=== PATIENT | female | born 1935 | race Caucasian/White ===

== ENCOUNTER 2018-02-08 12:58 | Emergency (ER) | payer MEDICARE, OTHER ==
[~2018-02-08] VITALS: Ht 160 cm; Wt 61.5 kg
[~2018-02-08 12:58] MED LIST: ALBU6.7H INH; ALBU8.5H8 IH; CETI10CA PO; CITA10TA9 PO; FLUT16SP26 BOTHNARES; STORE MEDs IN PHARMACY MC; TRAZ-143 PO
[2018-02-08 13:23] LABS: CLARITY,URINE Clear (Clear); COLOR,URINE Yellow (Yellow); GLUCOSE, URINE Negative (Neg); KETONES,URINE Negative (Neg); LEUKOCYTE ESTERASE ,URINE Small (Neg); NITRITES, URINE Negative (Neg); OCCULT BLOOD,URINE Negative (Neg); PROTEIN,URINE Negative (Neg)
[2018-02-08 13:27] LABS: UA COLLECTION TYPE CLN CATCH MIDSTREAM
[2018-02-08 13:28] LABS: BACTERIA,URINE 1+ /HPF (Neg); CAL OXALATE CRYSTALS 2+ /HPF (NEGATIVE); RBC,URINE NONE SEEN /HPF (0-2); RENAL CELLS, URINE FEW /HPF; SQUAMOUS EPITHELIAL CELL,UR MODERATE /LPF (FEW); WBC,URINE 0-4 /HPF (0-4)
[2018-02-08 13:29] LABS: COARSE GRANULAR CAST 0-3 /LPF (NEGATIVE)
[2018-02-08 13:38] LABS: BASOPHILS % (AUTO) 0.4 % (0-1); EOSINOPHILS # (AUTO) 0.6 X10'3 (0-0.9); EOSINOPHILS % (AUTO) 7.1 % (0-6); HEMATOCRIT 43.5 % (35.0-45.0); HEMOGLOBIN 14.5 g/dl (12.0-16.0); LYMPHOCYTES # (AUTO) 2.2 X10'3 (1.1-4.8); MEAN CORPUSCULAR HEMOGLOBIN 29.3 PG (27.0-31.0); MEAN CORPUSCULAR HGB CONC 33.2 % (33.0-36.5); MEAN CORPUSCULAR VOLUME 88.3 FL (78-98); MEAN PLATELET VOLUME 8.6 FL (7.4-10.4); MONOCYTES # (AUTO) 0.8 X10'3 (0-0.9); MONOCYTES % (AUTO) 10.4 % (2-12); NEUTROPHILS # (AUTO) 4.5 X10'3 (1.8-7.7); NEUTROPHILS % (AUTO) 55.1 % (42-75); PLATELET COUNT 287 X10'3 (140-440); RED BLOOD COUNT 4.93 X10'6 (4.20-5.60); RED CELL DISTRIBUTION WIDTH 13.3 % (11.5-14.5); WHITE BLOOD COUNT 8.1 X10'3 (4.5-11.0)
[2018-02-08 13:46] LABS: PROTHROMBIN TIME 10.3 SECONDS (9.0-12.0)
[2018-02-08 13:54] LABS: ALANINE AMINOTRANSFERASE 19 U/L (12-78); ALBUMIN 3.4 G/DL (3.4-5.0); ALBUMIN/GLOBULIN RATIO 0.9 (1.1-1.5); ALKALINE PHOSPHATASE 86 IU/L (46-116); ANION GAP 10 (8-16); ASPARTATE AMINO TRANSFERASE 14 U/L (10-37); BILIRUBIN,TOTAL 0.3 MG/DL (0.1-1.0); BLOOD UREA NITROGEN 12 MG/DL (7-18); BUN/CREATININE RATIO 12.8 (6.6-38.0); CALCIUM 9.1 MG/DL (8.5-10.1); CHLORIDE 109 MMOL/L (99-107); CREATININE 0.94 MG/DL (0.40-0.90); GLUCOSE 97 MG/DL (70-104); POTASSIUM 4.1 MMOL/L (3.5-5.1); SODIUM 144 MMOL/L (135-145); TOTAL CARBON DIOXIDE 24.7 MMOL/L (24-32); TOTAL PROTEIN 7.2 G/DL (6.4-8.2); eGFR 57 ML/MIN
[2018-02-08] MEDS ORDERED: BISA10SU60 RC (14:46)
[2018-02-08 14:49] LABS: LIPASE 326 U/L (73-393); MAGNESIUM 1.9 MG/DL (1.5-2.4)
[2018-02-08] MEDS ORDERED: bisacodyl 10mg suppository rectal RC ONE (14:50)
[2018-02-08 14:56] VITALS: BP 137/81
[2018-02-08 15:06] LABS: ETHANOL < 0.010 GM/DL (0.0-0.010)
== END 2018-02-08 15:19 | disposition home or self-care (01) ==
LOC: ER 12:59
DX: K59.00 Constipation, unspecified (principal); R10.9 Unspecified abdominal pain; M79.89 Other specified soft tissue disorders; E86.0 Dehydration; I25.2 Old myocardial infarction; I25.10 Atherosclerotic heart disease of native coronary artery without angina pectoris; Z90.49 Acquired absence of other specified parts of digestive tract; Z86.711 Personal history of pulmonary embolism; Z88.0 Allergy status to penicillin; Z88.5 Allergy status to narcotic agent; Z79.899 Other long term (current) drug therapy
CPT/HCPCS: 36415; 74018; 80053; 80320; 81001; 83690; 83735; 85025; 85610; 87088; 99285

== ENCOUNTER 2018-02-13 15:12 | Emergency (ER) | payer MEDICARE, OTHER ==
[~2018-02-13] VITALS: Ht 160 cm; Wt 63.6 kg
[~2018-02-13 15:12] MED LIST changes: +BISA10SU60 RC
[2018-02-13 16:02] LABS: BASOPHILS # (AUTO) 0.1 X10'3 (0-0.2); BASOPHILS % (AUTO) 0.7 % (0-1); EOSINOPHILS # (AUTO) 0.4 X10'3 (0-0.9); HEMATOCRIT 43.6 % (35.0-45.0); HEMOGLOBIN 14.7 g/dl (12.0-16.0); LYMPHOCYTES # (AUTO) 2.9 X10'3 (1.1-4.8); LYMPHOCYTES % (AUTO) 39.4 % (21-51); MEAN CORPUSCULAR HEMOGLOBIN 29.5 PG (27.0-31.0); MEAN CORPUSCULAR HGB CONC 33.6 % (33.0-36.5); MEAN CORPUSCULAR VOLUME 87.8 FL (78-98); MEAN PLATELET VOLUME 8.4 FL (7.4-10.4); MONOCYTES # (AUTO) 0.7 X10'3 (0-0.9); MONOCYTES % (AUTO) 8.8 % (2-12); NEUTROPHILS # (AUTO) 3.4 X10'3 (1.8-7.7); NEUTROPHILS % (AUTO) 46.1 % (42-75); PLATELET COUNT 287 X10'3 (140-440); RED BLOOD COUNT 4.97 X10'6 (4.20-5.60); RED CELL DISTRIBUTION WIDTH 13.1 % (11.5-14.5); WHITE BLOOD COUNT 7.5 X10'3 (4.5-11.0)
[2018-02-13 16:12] LABS: PARTIAL THROMBOPLASTIN TIME 27 SECONDS (22-32); PROTHROMBIN TIME 10.7 SECONDS (9.0-12.0)
[2018-02-13 16:16] LABS: ALANINE AMINOTRANSFERASE 18 U/L (12-78); ALBUMIN 3.4 G/DL (3.4-5.0); ALBUMIN/GLOBULIN RATIO 0.9 (1.1-1.5); ALKALINE PHOSPHATASE 92 IU/L (46-116); ANION GAP 12 (8-16); ASPARTATE AMINO TRANSFERASE 15 U/L (10-37); BILIRUBIN,TOTAL 0.4 MG/DL (0.1-1.0); BLOOD UREA NITROGEN 11 MG/DL (7-18); BUN/CREATININE RATIO 11.8 (6.6-38.0); CALCIUM 9.6 MG/DL (8.5-10.1); CHLORIDE 106 MMOL/L (99-107); CREATININE 0.93 MG/DL (0.40-0.90); GLUCOSE 89 MG/DL (70-104); POTASSIUM 3.7 MMOL/L (3.5-5.1); SODIUM 142 MMOL/L (135-145); TOTAL CARBON DIOXIDE 24.5 MMOL/L (24-32); TOTAL PROTEIN 7.3 G/DL (6.4-8.2); eGFR 58 ML/MIN
[2018-02-13] MEDS ORDERED: ASPI-529 (17:25)
[2018-02-13] MEDS ORDERED: ALPR-624 PO (17:25)
[2018-02-13 20:24] VITALS: BP 112/89
== END 2018-02-13 20:26 | disposition home or self-care (01) ==
LOC: ER 15:13
DX: M25.512 Pain in left shoulder (principal); R51 Headache; R53.1 Weakness; I25.10 Atherosclerotic heart disease of native coronary artery without angina pectoris; I25.2 Old myocardial infarction; M79.89 Other specified soft tissue disorders; Z90.49 Acquired absence of other specified parts of digestive tract; Z88.5 Allergy status to narcotic agent; Z88.0 Allergy status to penicillin; Z88.8 Allergy status to other drugs, medicaments and biological substances; Z79.82 Long term (current) use of aspirin; Z79.899 Other long term (current) drug therapy
CPT/HCPCS: 36415; 70450; 71045; 80053; 84484; 85025; 85610; 85730; 93005; 99285

== ENCOUNTER 2018-03-10 11:19 | Emergency (ER) | payer MEDICARE, OTHER ==
[~2018-03-10] VITALS: Ht 160 cm; Wt 63.6 kg
[~2018-03-10 11:19] MED LIST changes: -ALBU6.7H INH; -ALBU8.5H8 IH; +ALPR-624 PO; +ASPI-529; -BISA10SU60 RC; -CETI10CA PO; -CITA10TA9 PO; -FLUT16SP26 BOTHNARES; -STORE MEDs IN PHARMACY MC; -TRAZ-143 PO
[2018-03-10 11:42] LABS: BASOPHILS % (AUTO) 0.6 % (0-1); EOSINOPHILS # (AUTO) 0.5 X10'3 (0-0.9); EOSINOPHILS % (AUTO) 8.3 % (0-6); HEMATOCRIT 42.9 % (35.0-45.0); HEMOGLOBIN 14.5 g/dl (12.0-16.0); LYMPHOCYTES # (AUTO) 2.6 X10'3 (1.1-4.8); LYMPHOCYTES % (AUTO) 42.6 % (21-51); MEAN CORPUSCULAR HEMOGLOBIN 29.4 PG (27.0-31.0); MEAN CORPUSCULAR HGB CONC 33.7 % (33.0-36.5); MEAN CORPUSCULAR VOLUME 87.2 FL (78-98); MEAN PLATELET VOLUME 7.9 FL (7.4-10.4); MONOCYTES # (AUTO) 0.5 X10'3 (0-0.9); MONOCYTES % (AUTO) 8.6 % (2-12); NEUTROPHILS # (AUTO) 2.4 X10'3 (1.8-7.7); NEUTROPHILS % (AUTO) 39.9 % (42-75); PLATELET COUNT 239 X10'3 (140-440); RED BLOOD COUNT 4.92 X10'6 (4.20-5.60); RED CELL DISTRIBUTION WIDTH 12.6 % (11.5-14.5); WHITE BLOOD COUNT 6.1 X10'3 (4.5-11.0)
[2018-03-10 11:51] LABS: PARTIAL THROMBOPLASTIN TIME 26 SECONDS (22-32); PROTHROMBIN TIME 10.7 SECONDS (9.0-12.0)
[2018-03-10 11:56] LABS: ALANINE AMINOTRANSFERASE 19 U/L (12-78); ALBUMIN 3.2 G/DL (3.4-5.0); ALBUMIN/GLOBULIN RATIO 0.9 (1.1-1.5); ALKALINE PHOSPHATASE 91 IU/L (46-116); ANION GAP 8 (8-16); ASPARTATE AMINO TRANSFERASE 26 U/L (10-37); BILIRUBIN,TOTAL 0.5 MG/DL (0.1-1.0); BLOOD UREA NITROGEN 12 MG/DL (7-18); BUN/CREATININE RATIO 11.9 (6.6-38.0); CALCIUM 9.3 MG/DL (8.5-10.1); CHLORIDE 109 MMOL/L (99-107); CREATININE 1.01 MG/DL (0.40-0.90); GLUCOSE 129 MG/DL (70-104); SODIUM 143 MMOL/L (135-145); TOTAL CARBON DIOXIDE 25.9 MMOL/L (24-32); TOTAL PROTEIN 6.8 G/DL (6.4-8.2); eGFR 53 ML/MIN
[2018-03-10] MEDS ORDERED: sucralfate 1gm/10ml UD suspension PO STA (12:02)
[2018-03-10] MEDS ORDERED: morphine 2 MG/ML inj. syringe IV ONE (12:05)
[2018-03-10] MEDS ORDERED: morphine 4 MG/ML inj SYRINge IV ONE ×2 (12:15→12:40)
[2018-03-10 13:38] VITALS: BP 109/71
[2018-03-11] MEDS ORDERED: PANT-47 PO (20:34)
[2018-03-11] MEDS ORDERED: SUCR1TAB34 PO (20:34)
== END 2018-03-10 13:55 | disposition home or self-care (01) ==
LOC: ER 11:20
DX: R07.9 Chest pain, unspecified (principal); I25.10 Atherosclerotic heart disease of native coronary artery without angina pectoris; I25.2 Old myocardial infarction; Z90.49 Acquired absence of other specified parts of digestive tract; Z88.0 Allergy status to penicillin; Z88.5 Allergy status to narcotic agent; Z79.899 Other long term (current) drug therapy
CPT/HCPCS: 36415; 71045; 80053; 84484; 85025; 85610; 85730; 93005; 96374; 99285; J2270

== ENCOUNTER 2018-03-11 18:48 | Emergency (ER) | payer MEDICARE, OTHER ==
[~2018-03-11] VITALS: Ht 160 cm; Wt 61.8 kg
[2018-03-11 19:28] LABS: BASOPHILS % (AUTO) 0.8 % (0-1); EOSINOPHILS # (AUTO) 0.6 X10'3 (0-0.9); HEMATOCRIT 40.4 % (35.0-45.0); HEMOGLOBIN 13.9 g/dl (12.0-16.0); LYMPHOCYTES # (AUTO) 2.3 X10'3 (1.1-4.8); LYMPHOCYTES % (AUTO) 42.8 % (21-51); MEAN CORPUSCULAR HEMOGLOBIN 29.7 PG (27.0-31.0); MEAN CORPUSCULAR HGB CONC 34.5 % (33.0-36.5); MEAN CORPUSCULAR VOLUME 86.2 FL (78-98); MONOCYTES # (AUTO) 0.7 X10'3 (0-0.9); NEUTROPHILS # (AUTO) 1.8 X10'3 (1.8-7.7); NEUTROPHILS % (AUTO) 33.4 % (42-75); PLATELET COUNT 226 X10'3 (140-440); RED BLOOD COUNT 4.69 X10'6 (4.20-5.60); RED CELL DISTRIBUTION WIDTH 13.1 % (11.5-14.5); WHITE BLOOD COUNT 5.4 X10'3 (4.5-11.0)
[2018-03-11 19:38] LABS: PROTHROMBIN TIME 10.7 SECONDS (9.0-12.0)
[2018-03-11 19:44] LABS: ALANINE AMINOTRANSFERASE 35 U/L (12-78); ALBUMIN/GLOBULIN RATIO 0.8 (1.1-1.5); ALKALINE PHOSPHATASE 95 IU/L (46-116); ANION GAP 8 (8-16); ASPARTATE AMINO TRANSFERASE 43 U/L (10-37); BILIRUBIN,TOTAL 0.5 MG/DL (0.1-1.0); BLOOD UREA NITROGEN 11 MG/DL (7-18); BUN/CREATININE RATIO 11.3 (6.6-38.0); CALCIUM 9.3 MG/DL (8.5-10.1); CHLORIDE 108 MMOL/L (99-107); CREATININE 0.97 MG/DL (0.40-0.90); GLUCOSE 103 MG/DL (70-104); POTASSIUM 3.6 MMOL/L (3.5-5.1); SODIUM 143 MMOL/L (135-145); TOTAL CARBON DIOXIDE 26.8 MMOL/L (24-32); TOTAL PROTEIN 6.6 G/DL (6.4-8.2); eGFR 55 ML/MIN
[2018-03-11] MEDS ORDERED: SUCR1TAB34 PO (20:34)
[2018-03-11] MEDS ORDERED: PANT-47 PO (20:34)
[2018-03-11 21:04] VITALS: BP 130/75
== END 2018-03-11 21:06 | disposition home or self-care (01) ==
LOC: ER 18:48
DX: R10.13 Epigastric pain (principal); K44.9 Diaphragmatic hernia without obstruction or gangrene; I25.10 Atherosclerotic heart disease of native coronary artery without angina pectoris; I25.2 Old myocardial infarction; Z90.49 Acquired absence of other specified parts of digestive tract; Z88.0 Allergy status to penicillin; Z88.5 Allergy status to narcotic agent; Z88.8 Allergy status to other drugs, medicaments and biological substances; Z79.899 Other long term (current) drug therapy
CPT/HCPCS: 36415; 80053; 84484; 85025; 85610; 93005; 99285; A6222; A6449; L0172

== ENCOUNTER 2018-03-23 21:10 | Emergency (ER) | payer MEDICARE, OTHER ==
[~2018-03-23] VITALS: Ht 160 cm; Wt 50.0 kg
[~2018-03-23 21:10] MED LIST changes: +PANT-47 PO; +SUCR1TAB34 PO
[2018-03-23] MEDS ORDERED: mag hydrox/Alum hydrox/simeth 30ml oral suspension PO ONE (22:25)
[2018-03-23] MEDS ORDERED: famotidine 20mg tablet PO ONE (22:25)
[2018-03-23 23:18] VITALS: BP 128/58
== END 2018-03-23 23:19 | disposition home or self-care (01) ==
LOC: ER 21:11
DX: K21.9 Gastro-esophageal reflux disease without esophagitis (principal); I25.10 Atherosclerotic heart disease of native coronary artery without angina pectoris; I25.2 Old myocardial infarction; Z86.711 Personal history of pulmonary embolism; Z90.49 Acquired absence of other specified parts of digestive tract; Z88.0 Allergy status to penicillin; Z88.8 Allergy status to other drugs, medicaments and biological substances; Z79.899 Other long term (current) drug therapy
CPT/HCPCS: 93005; 99283

== ENCOUNTER 2018-04-28 11:51 | Inpatient (IN) | payer MEDICARE, OTHER ==
[~2018-04-28] VITALS: Ht 157.5 cm; Wt 64.1 kg
[~2018-04-28 11:51] MED LIST changes: +adenosine 3mg/ml 2ml vial IV ONE
[2018-04-28] MEDS ORDERED: adenosine 3mg/ml 2ml vial IV ONE ×2 (12:20)
[2018-04-28] MEDS ORDERED: normal saline 1000ML IV soln IVB ONE (12:20)
[2018-04-28 13:11] LABS: BASOPHILS % (AUTO) 0.5 % (0-1); EOSINOPHILS # (AUTO) 0.2 X10'3 (0-0.9); EOSINOPHILS % (AUTO) 4.3 % (0-6); HEMATOCRIT 40.9 % (35.0-45.0); HEMOGLOBIN 13.8 g/dl (12.0-16.0); LYMPHOCYTES # (AUTO) 1.9 X10'3 (1.1-4.8); LYMPHOCYTES % (AUTO) 36.5 % (21-51); MEAN CORPUSCULAR HEMOGLOBIN 29.5 PG (27.0-31.0); MEAN CORPUSCULAR HGB CONC 33.8 % (33.0-36.5); MEAN CORPUSCULAR VOLUME 87.2 FL (78-98); MONOCYTES # (AUTO) 0.5 X10'3 (0-0.9); MONOCYTES % (AUTO) 8.7 % (2-12); NEUTROPHILS # (AUTO) 2.6 X10'3 (1.8-7.7); PLATELET COUNT 197 X10'3 (140-440); RED BLOOD COUNT 4.69 X10'6 (4.20-5.60); RED CELL DISTRIBUTION WIDTH 13.1 % (11.5-14.5); WHITE BLOOD COUNT 5.3 X10'3 (4.5-11.0)
[2018-04-28 13:32] LABS: ALANINE AMINOTRANSFERASE 14 U/L (12-78); ALBUMIN/GLOBULIN RATIO 0.9 (1.1-1.5); ALKALINE PHOSPHATASE 81 IU/L (46-116); ANION GAP 12 (8-16); ASPARTATE AMINO TRANSFERASE 14 U/L (10-37); BILIRUBIN,TOTAL 0.3 MG/DL (0.1-1.0); CALCIUM 8.5 MG/DL (8.5-10.1); CHLORIDE 111 MMOL/L (99-107); CREATININE 0.85 MG/DL (0.40-0.90); GLUCOSE 97 MG/DL (70-104); POTASSIUM 3.5 MMOL/L (3.5-5.1); SODIUM 145 MMOL/L (135-145); TOTAL PROTEIN 6.3 G/DL (6.4-8.2); eGFR 64 ML/MIN
[2018-04-28 13:58] LABS: BLOOD UREA NITROGEN 13 MG/DL (7-18); BUN/CREATININE RATIO 15.3 (6.6-38.0)
[2018-04-28] MEDS ORDERED: mag hydrox/Alum hydrox/simeth 30ml oral suspension PO PRN (16:30)
[2018-04-28] MEDS ORDERED: magnesium hydroxide 30ml (MOM) UD suspension PO PRN (16:30)
[2018-04-28] MEDS ORDERED: ondansetron/PF 4mg/2ml inj IV PRN (16:30)
[2018-04-28] MEDS ORDERED: acetaminophen 325mg tablet PO PRN (16:30)
[2018-04-28 16:48] LABS: D-DIMER 0.75 MG/L FEU (0-0.50)
[2018-04-28 17:00] LABS: LIPASE 218 U/L (73-393)
[2018-04-28] MEDS: potassium Cl 20mEq in NS 1,000 ML IV SCH (17:07)
[2018-04-28 19:00] VITALS: BP 141/86
[2018-04-28] MEDS: ALPRAZolam 0.5mg tablet PO SCH (19:45)
[2018-04-28] MEDS: enoxaparin 100mg/ml syringe SQ SCH (19:46)
[2018-04-28] MEDS: metoprolol tartrate 12.5mg (1/2 tablet) PO SCH (20:59)
[2018-04-28 23:00] VITALS: BP 117/68
[2018-04-29 03:00] VITALS: BP 89/65
[2018-04-29 06:00] VITALS: BP 117/69
[2018-04-29] MEDS: ALPRAZolam 0.5mg tablet PO SCH (07:15)
[2018-04-29] MEDS: metoprolol tartrate 12.5mg (1/2 tablet) PO SCH (07:17)
[2018-04-29] MEDS: enoxaparin 100mg/ml syringe SQ SCH (07:19)
[2018-04-29] MEDS ORDERED: pantoprazole 40mg Tablet.DR PO SCH (07:30)
[2018-04-29] MEDS ORDERED: lisinopril 5mg tablet PO SCH (08:00)
[2018-04-29] MEDS ORDERED: aspirin 81mg tab.chew PO SCH (08:00)
[2018-04-29] MEDS ORDERED: atorvastatin 10mg tablet PO SCH (08:00)
[2018-04-29 11:00] VITALS: BP 110/70
[2018-04-29] MEDS ORDERED: ALPR-624 PO (11:40)
[2018-04-29] MEDS: potassium Cl 20mEq in NS 1,000 ML IV SCH (12:31)
== END 2018-04-29 13:58 | disposition home health service (06) | DRG 310 ==
LOC: ER 11:52 → ED HOLD 16:29 → PCU 3S 19:02
PROVIDERS: ADMIT Family Medicine; ATTEND Family Medicine
DX: I47.1 Supraventricular tachycardia (principal); F43.10 Post-traumatic stress disorder, unspecified; I10 Essential (primary) hypertension; I25.10 Atherosclerotic heart disease of native coronary artery without angina pectoris; K44.9 Diaphragmatic hernia without obstruction or gangrene; F32.9 Major depressive disorder, single episode, unspecified; R51 Headache; I25.2 Old myocardial infarction; Z90.49 Acquired absence of other specified parts of digestive tract; Z88.5 Allergy status to narcotic agent; Z88.0 Allergy status to penicillin; Z88.8 Allergy status to other drugs, medicaments and biological substances; Z79.899 Other long term (current) drug therapy; Z79.82 Long term (current) use of aspirin; Z86.711 Personal history of pulmonary embolism
CPT/HCPCS: 36415; 71045; 80053; 83690; 83735; 83880; 84439; 84443; 84484; 85025; 85379; 87070; 93005; 93306; 96361; 96374; 96375; 99291; J0153; J1650; J7030

== ENCOUNTER 2018-06-04 14:00 | Emergency (ER) | payer MEDICARE, OTHER ==
[~2018-06-04] VITALS: Ht 157.5 cm; Wt 61.0 kg
[~2018-06-04 14:00] MED LIST changes: -PANT-47 PO; -SUCR1TAB34 PO; -adenosine 3mg/ml 2ml vial IV ONE
[2018-06-04 14:30] LABS: BASOPHILS # (AUTO) 0.1 X10'3 (0-0.2); BASOPHILS % (AUTO) 0.9 % (0-1); EOSINOPHILS # (AUTO) 0.3 X10'3 (0-0.9); EOSINOPHILS % (AUTO) 4.7 % (0-6); HEMATOCRIT 42.8 % (35.0-45.0); HEMOGLOBIN 14.4 g/dl (12.0-16.0); LYMPHOCYTES # (AUTO) 2.2 X10'3 (1.1-4.8); MEAN CORPUSCULAR HEMOGLOBIN 29.4 PG (27.0-31.0); MEAN CORPUSCULAR HGB CONC 33.6 % (33.0-36.5); MEAN CORPUSCULAR VOLUME 87.6 FL (78-98); MEAN PLATELET VOLUME 8.6 FL (7.4-10.4); MONOCYTES # (AUTO) 0.7 X10'3 (0-0.9); MONOCYTES % (AUTO) 10.7 % (2-12); NEUTROPHILS % (AUTO) 48.7 % (42-75); PLATELET COUNT 230 X10'3 (140-440); RED BLOOD COUNT 4.88 X10'6 (4.20-5.60); RED CELL DISTRIBUTION WIDTH 13.8 % (11.5-14.5); WHITE BLOOD COUNT 6.3 X10'3 (4.5-11.0)
[2018-06-04 14:48] LABS: ALANINE AMINOTRANSFERASE 23 U/L (12-78); ALBUMIN 3.3 G/DL (3.4-5.0); ALKALINE PHOSPHATASE 78 IU/L (46-116); ANION GAP 9 (8-16); ASPARTATE AMINO TRANSFERASE 17 U/L (10-37); BILIRUBIN,TOTAL 0.5 MG/DL (0.1-1.0); BLOOD UREA NITROGEN 14 MG/DL (7-18); BUN/CREATININE RATIO 14.7 (6.6-38.0); CALCIUM 9.5 MG/DL (8.5-10.1); CHLORIDE 107 MMOL/L (99-107); CREATININE 0.95 MG/DL (0.40-0.90); GLUCOSE 97 MG/DL (70-104); POTASSIUM 3.8 MMOL/L (3.5-5.1); SODIUM 141 MMOL/L (135-145); TOTAL CARBON DIOXIDE 25.2 MMOL/L (24-32); TOTAL PROTEIN 6.7 G/DL (6.4-8.2); eGFR 56 ML/MIN
[2018-06-04 14:56] LABS: ETHANOL < 0.010 GM/DL (0.0-0.010)
[2018-06-04 15:36] LABS: COLOR,URINE YELLOW (Yellow); GLUCOSE, URINE NEGATIVE (Neg); KETONES,URINE NEGATIVE (Neg); LEUKOCYTE ESTERASE ,URINE TRACE (Neg); NITRITES, URINE NEGATIVE (Neg); OCCULT BLOOD,URINE NEGATIVE (Neg); PH,URINE 5.5 (4.8-8.0); PROTEIN,URINE NEGATIVE (Neg); UROBILINOGEN,URINE 0.2 E.U/dL (0.2-1.0)
[2018-06-04 15:37] LABS: CLARITY,URINE Slightly Cloudy (Clear); UA COLLECTION TYPE CLN CATCH MIDSTREAM; URINE AMPHETAMINE SCREEN NEGATIVE (Neg); URINE BARBITUATE SCREEN NEGATIVE (Neg); URINE BENZODIAZEPINES SCREEN POSITIVE (Neg); URINE CANNABINOID SCREEN NEGATIVE (Neg); URINE COCAINE SCREEN NEGATIVE (Neg); URINE METHADONE SCREEN NEGATIVE (Neg); URINE OPIATE SCREEN NEGATIVE (Neg); URINE PHENCYCLIDINE SCREEN NEGATIVE (Neg)
[2018-06-04 15:43] LABS: BACTERIA,URINE FEW /HPF (Neg); RBC,URINE NONE SEEN /HPF (0-2); SQUAMOUS EPITHELIAL CELL,UR MODERATE /LPF (FEW); WBC,URINE 0-4 /HPF (0-4)
[2018-06-04] MEDS ORDERED: ALPR-624 PO (16:47)
[2018-06-04] MEDS ORDERED: ASPI-920 PO (16:47)
[2018-06-04] MEDS ORDERED: MELA3TAB PO (20:53)
[2018-06-04 22:26] VITALS: BP 124/77
== END 2018-06-04 22:28 ==
LOC: ER 14:00
DX: F32.9 Major depressive disorder, single episode, unspecified (principal); R45.851 Suicidal ideations; I25.10 Atherosclerotic heart disease of native coronary artery without angina pectoris; I25.2 Old myocardial infarction; Z86.711 Personal history of pulmonary embolism; Z90.49 Acquired absence of other specified parts of digestive tract; Z88.0 Allergy status to penicillin; Z88.5 Allergy status to narcotic agent; Z88.8 Allergy status to other drugs, medicaments and biological substances; Z79.82 Long term (current) use of aspirin; Z79.899 Other long term (current) drug therapy
CPT/HCPCS: 36415; 80053; 80305; 80320; 81001; 84443; 85025; 99285; A4565

== ENCOUNTER 2018-06-04 22:00 | Inpatient (IN) | payer MEDICARE, OTHER ==
[~2018-06-04] VITALS: Ht 160 cm; Wt 62.8 kg
[~2018-06-04 22:00] MED LIST changes: +ASPI-920 PO; +MELA3TAB PO
[2018-06-04] MEDS ORDERED: traZODone 50mg tablet PO PRN (22:55)
[2018-06-04 23:53] VITALS: BP 141/90
[2018-06-05] MEDS: ALPRAZolam 0.5mg tablet PO SCH ×3 (00:06→21:10)
[2018-06-05] MEDS: traZODone 50mg tablet PO PRN (00:06)
[2018-06-05 08:15] VITALS: BP 125/71
[2018-06-05] MEDS: aspirin 81mg tablet.DR PO SCH (08:36)
[2018-06-05 20:00] VITALS: BP 115/71
[2018-06-05] MEDS: Melatonin 3mg tablet PO SCH (21:10)
[2018-06-05] MEDS: buPROPion SR 150mg tablet PO SCH (23:08)
[2018-06-06 08:00] VITALS: BP 106/62
[2018-06-06] MEDS: ALPRAZolam 0.5mg tablet PO SCH ×2 (09:03→21:32)
[2018-06-06] MEDS: aspirin 81mg tablet.DR PO SCH (09:03)
[2018-06-06] MEDS: buPROPion SR 150mg tablet PO SCH (09:03)
[2018-06-06] MEDS ORDERED: buPROPion SR 150mg tablet PO ONE (16:50)
[2018-06-06 19:00] VITALS: BP 110/74
[2018-06-06] MEDS: Melatonin 3mg tablet PO SCH (21:00)
[2018-06-07] MEDS: buPROPion SR 150mg tablet PO SCH ×2 (07:51→13:03)
[2018-06-07] MEDS: aspirin 81mg tablet.DR PO SCH (07:51)
[2018-06-07] MEDS: ALPRAZolam 0.5mg tablet PO SCH ×2 (07:51→19:16)
[2018-06-07 08:00] VITALS: BP 102/57
[2018-06-07 20:00] VITALS: BP 133/74
[2018-06-07] MEDS: Melatonin 3mg tablet PO SCH (20:12)
[2018-06-07] MEDS: traZODone 50mg tablet PO PRN (20:12)
[2018-06-08 08:00] VITALS: BP 96/63
[2018-06-08] MEDS: buPROPion SR 150mg tablet PO SCH ×2 (08:01→12:27)
[2018-06-08] MEDS: aspirin 81mg tablet.DR PO SCH (08:01)
[2018-06-08] MEDS: ALPRAZolam 0.5mg tablet PO SCH ×2 (08:01→20:20)
[2018-06-08 19:00] VITALS: BP 113/71
[2018-06-08] MEDS: Melatonin 3mg tablet PO SCH (20:20)
[2018-06-08] MEDS ORDERED: traZODone 50mg tablet PO SCH (21:00)
[2018-06-09] MEDS: buPROPion SR 150mg tablet PO SCH ×2 (07:30→12:43)
[2018-06-09 08:00] VITALS: BP 104/55
[2018-06-09] MEDS: ALPRAZolam 0.5mg tablet PO SCH ×2 (08:00→20:15)
[2018-06-09] MEDS: aspirin 81mg tablet.DR PO SCH (08:00)
[2018-06-09] MEDS ORDERED: tuberculin, purif. prot. deriv. 5 units/0.1ml ID ONE (08:35)
[2018-06-09 19:46] VITALS: BP 117/85
[2018-06-09] MEDS: Melatonin 3mg tablet PO SCH (20:14)
[2018-06-09] MEDS: docusate sod 100mg capsule PO SCH (20:15)
[2018-06-09] MEDS ORDERED: zolpidem 5mg tablet PO ONE (21:00)
[2018-06-10] MEDS: buPROPion SR 150mg tablet PO SCH ×2 (07:42→12:37)
[2018-06-10] MEDS: ALPRAZolam 0.5mg tablet PO SCH ×2 (07:43→20:36)
[2018-06-10] MEDS: docusate sod 100mg capsule PO SCH ×2 (07:43→20:36)
[2018-06-10] MEDS: aspirin 81mg tablet.DR PO SCH (07:43)
[2018-06-10 08:00] VITALS: BP 97/63
[2018-06-10] MEDS ORDERED: LORazepam 1 MG tablet PO ONE (13:10)
[2018-06-10 20:00] VITALS: BP 138/63
[2018-06-10] MEDS: famotidine 20mg tablet PO SCH (20:36)
[2018-06-10] MEDS: Melatonin 3mg tablet PO SCH (20:36)
[2018-06-11] MEDS: docusate sod 100mg capsule PO SCH ×2 (08:00→21:00)
[2018-06-11] MEDS: aspirin 81mg tablet.DR PO SCH (08:24)
[2018-06-11] MEDS: ALPRAZolam 0.5mg tablet PO SCH ×2 (08:24→21:00)
[2018-06-11] MEDS: buPROPion SR 150mg tablet PO SCH ×2 (08:24→12:36)
[2018-06-11] MEDS: famotidine 20mg tablet PO SCH ×2 (08:24→21:00)
[2018-06-11] MEDS: LORazepam 1 MG tablet PO PRN (17:44)
[2018-06-11 19:47] VITALS: BP 109/73
[2018-06-11] MEDS: Melatonin 3mg tablet PO SCH (21:01)
[2018-06-12] MEDS: aspirin 81mg tablet.DR PO SCH (08:26)
[2018-06-12] MEDS: ALPRAZolam 0.5mg tablet PO SCH ×2 (08:27→19:32)
[2018-06-12] MEDS: docusate sod 100mg capsule PO SCH ×2 (08:27→19:32)
[2018-06-12] MEDS: famotidine 20mg tablet PO SCH ×2 (08:27→19:32)
[2018-06-12] MEDS: buPROPion SR 150mg tablet PO SCH ×2 (08:27→13:17)
[2018-06-12 08:55] VITALS: BP 111/66
[2018-06-12] MEDS: LORazepam 1 MG tablet PO PRN (10:39)
[2018-06-12] MEDS: busPIRone 5mg tablet PO SCH (19:32)
[2018-06-12 19:42] VITALS: BP 137/79
[2018-06-12] MEDS: traZODone 50mg tablet PO SCH (20:31)
[2018-06-12] MEDS: Melatonin 3mg tablet PO SCH (20:31)
[2018-06-13] MEDS ORDERED: buPROPion SR 150mg tablet PO SCH (07:30)
[2018-06-13 08:06] VITALS: BP 122/69
[2018-06-13] MEDS ORDERED: buPROPion 100mg tablet PO ONE (08:10)
[2018-06-13] MEDS: busPIRone 5mg tablet PO SCH ×3 (08:17→21:10)
[2018-06-13] MEDS: docusate sod 100mg capsule PO SCH ×2 (08:17→21:10)
[2018-06-13] MEDS: aspirin 81mg tablet.DR PO SCH (08:17)
[2018-06-13] MEDS: famotidine 20mg tablet PO SCH ×2 (08:17→21:10)
[2018-06-13] MEDS: ALPRAZolam 0.5mg tablet PO SCH ×2 (08:17→21:11)
[2018-06-13] MEDS: buPROPion 100mg tablet PO SCH (12:49)
[2018-06-13 19:54] VITALS: BP 134/85
[2018-06-13] MEDS: traZODone 50mg tablet PO SCH ×2 (21:00→21:11)
[2018-06-13] MEDS: Melatonin 3mg tablet PO SCH (21:11)
[2018-06-14 08:00] VITALS: BP 124/78
[2018-06-14] MEDS: docusate sod 100mg capsule PO SCH ×2 (08:28→21:15)
[2018-06-14] MEDS: famotidine 20mg tablet PO SCH ×2 (08:28→21:15)
[2018-06-14] MEDS: aspirin 81mg tablet.DR PO SCH (08:28)
[2018-06-14] MEDS: busPIRone 5mg tablet PO SCH ×2 (08:28→21:15)
[2018-06-14] MEDS: buPROPion 100mg tablet PO SCH ×2 (08:28→13:25)
[2018-06-14] MEDS: ALPRAZolam 0.5mg tablet PO SCH ×2 (08:28→21:16)
[2018-06-14] MEDS: LORazepam 1 MG tablet PO PRN (17:44)
[2018-06-14 19:57] VITALS: BP 139/81
[2018-06-14] MEDS: Melatonin 3mg tablet PO SCH (21:15)
[2018-06-14] MEDS: traZODone 50mg tablet PO SCH (21:15)
[2018-06-15 08:00] VITALS: BP 104/70
[2018-06-15] MEDS: busPIRone 5mg tablet PO SCH ×2 (08:16→20:27)
[2018-06-15] MEDS: buPROPion 100mg tablet PO SCH ×2 (08:17→13:05)
[2018-06-15] MEDS: ALPRAZolam 0.5mg tablet PO SCH ×2 (08:17→20:27)
[2018-06-15] MEDS: famotidine 20mg tablet PO SCH ×2 (08:17→20:29)
[2018-06-15] MEDS: aspirin 81mg tablet.DR PO SCH (08:17)
[2018-06-15] MEDS: docusate sod 100mg capsule PO SCH ×2 (08:18→20:28)
[2018-06-15] MEDS: diphenhydrAMINE 25mg capsule PO PRN (13:05)
[2018-06-15 20:27] VITALS: BP 112/70
[2018-06-15] MEDS: mirtazapine 15mg tablet PO SCH (20:28)
[2018-06-15] MEDS: Melatonin 3mg tablet PO SCH (20:29)
[2018-06-15] MEDS: acetaminophen 325mg tablet PO PRN (20:32)
[2018-06-16 08:00] VITALS: BP 109/69
[2018-06-16] MEDS: busPIRone 5mg tablet PO SCH ×3 (08:00→20:00)
[2018-06-16] MEDS: famotidine 20mg tablet PO SCH ×2 (08:00→20:00)
[2018-06-16] MEDS: ALPRAZolam 0.5mg tablet PO SCH ×2 (08:34→20:46)
[2018-06-16] MEDS: docusate sod 100mg capsule PO SCH ×2 (08:35→20:46)
[2018-06-16] MEDS: aspirin 81mg tablet.DR PO SCH (08:35)
[2018-06-16] MEDS: buPROPion 100mg tablet PO SCH ×2 (08:35→13:29)
[2018-06-16] MEDS: diphenhydrAMINE 25mg capsule PO PRN ×2 (09:05→20:46)
[2018-06-16 19:48] VITALS: BP 110/75
[2018-06-16] MEDS: Melatonin 3mg tablet PO SCH (20:46)
[2018-06-16] MEDS: mirtazapine 15mg tablet PO SCH (20:55)
[2018-06-17] MEDS: docusate sod 100mg capsule PO SCH ×2 (07:55→20:05)
[2018-06-17] MEDS: ALPRAZolam 0.5mg tablet PO SCH ×2 (07:55→20:05)
[2018-06-17] MEDS: aspirin 81mg tablet.DR PO SCH (07:55)
[2018-06-17] MEDS: famotidine 20mg tablet PO SCH ×2 (07:55→20:05)
[2018-06-17] MEDS: buPROPion 100mg tablet PO SCH ×2 (07:55→12:25)
[2018-06-17 08:00] VITALS: BP 111/67
[2018-06-17] MEDS: busPIRone 5mg tablet PO SCH ×2 (08:00→20:00)
[2018-06-17] MEDS: acetaminophen 325mg tablet PO PRN (10:25)
[2018-06-17 20:00] VITALS: BP 130/76
[2018-06-17] MEDS: Melatonin 3mg tablet PO SCH (20:05)
[2018-06-17] MEDS: mirtazapine 15mg tablet PO SCH (20:09)
[2018-06-18 07:50] VITALS: BP 108/72
[2018-06-18] MEDS: famotidine 20mg tablet PO SCH ×2 (07:53→19:24)
[2018-06-18] MEDS: docusate sod 100mg capsule PO SCH ×2 (07:53→19:23)
[2018-06-18] MEDS: buPROPion 100mg tablet PO SCH ×2 (07:53→13:00)
[2018-06-18] MEDS: aspirin 81mg tablet.DR PO SCH (07:53)
[2018-06-18] MEDS: ALPRAZolam 0.5mg tablet PO SCH ×2 (07:53→19:24)
[2018-06-18] MEDS: busPIRone 5mg tablet PO SCH ×2 (07:57→19:28)
[2018-06-18] MEDS: Melatonin 3mg tablet PO SCH (19:28)
[2018-06-18 19:42] VITALS: BP 121/76
[2018-06-18] MEDS: mirtazapine 15mg tablet PO SCH (21:00)
[2018-06-19] MEDS: busPIRone 5mg tablet PO SCH ×2 (08:00→21:01)
[2018-06-19] MEDS: docusate sod 100mg capsule PO SCH ×2 (08:18→21:01)
[2018-06-19] MEDS: famotidine 20mg tablet PO SCH ×2 (08:18→21:01)
[2018-06-19] MEDS: ALPRAZolam 0.5mg tablet PO SCH ×2 (08:18→21:01)
[2018-06-19] MEDS: buPROPion 100mg tablet PO SCH ×2 (08:18→12:43)
[2018-06-19] MEDS: aspirin 81mg tablet.DR PO SCH (08:18)
[2018-06-19 08:38] VITALS: BP 119/78
[2018-06-19] MEDS: LORazepam 1 MG tablet PO PRN (15:13)
[2018-06-19 19:00] VITALS: BP 120/77
[2018-06-19] MEDS: mirtazapine 15mg tablet PO SCH ×2 (21:00→21:01)
[2018-06-19] MEDS: Melatonin 3mg tablet PO SCH (21:01)
[2018-06-19] MEDS ORDERED: COL100C PO (23:20)
[2018-06-19] MEDS ORDERED: FAMO20TA8 PO (23:20)
[2018-06-19] MEDS ORDERED: ALPR0.5T9 PO (23:20)
[2018-06-19] MEDS ORDERED: MELA3TAB PO (23:20)
[2018-06-19] MEDS ORDERED: ASPI-1071 PO (23:20)
[2018-06-19] MEDS ORDERED: BUPR100T16 PO (23:20)
[2018-06-20] MEDS: busPIRone 5mg tablet PO SCH (08:00)
[2018-06-20] MEDS: aspirin 81mg tablet.DR PO SCH (08:00)
[2018-06-20] MEDS: buPROPion 100mg tablet PO SCH ×2 (08:00→12:28)
[2018-06-20] MEDS: docusate sod 100mg capsule PO SCH (08:00)
[2018-06-20] MEDS: famotidine 20mg tablet PO SCH (08:00)
[2018-06-20] MEDS: ALPRAZolam 0.5mg tablet PO SCH (08:00)
[2018-06-20 08:17] VITALS: BP 108/72
== END 2018-06-20 13:50 | disposition home or self-care (01) | DRG 885 ==
LOC: ADULT MH 22:00
PROVIDERS: ADMIT Psychiatry & Neurology Psychiatry; ATTEND Psychiatry & Neurology Psychiatry
DX: F33.2 Major depressive disorder, recurrent severe without psychotic features (principal); R45.851 Suicidal ideations; F41.0 Panic disorder [episodic paroxysmal anxiety]; F43.10 Post-traumatic stress disorder, unspecified; I10 Essential (primary) hypertension; K21.9 Gastro-esophageal reflux disease without esophagitis; R07.89 Other chest pain; I25.10 Atherosclerotic heart disease of native coronary artery without angina pectoris; K44.9 Diaphragmatic hernia without obstruction or gangrene; Z88.0 Allergy status to penicillin; Z88.5 Allergy status to narcotic agent; Z88.8 Allergy status to other drugs, medicaments and biological substances; Z85.42 Personal history of malignant neoplasm of other parts of uterus; Z80.3 Family history of malignant neoplasm of breast; Z80.49 Family history of malignant neoplasm of other genital organs; Z80.8 Family history of malignant neoplasm of other organs or systems
CPT/HCPCS: 36415; 74018; 84484; 87070; 93005; Q0163

== ENCOUNTER 2018-08-24 18:22 | Emergency (ER) | payer MEDICARE, OTHER ==
[~2018-08-24] VITALS: Ht 160 cm; Wt 62.1 kg
[~2018-08-24 18:22] MED LIST changes: -ALPR-624 PO; +ALPR0.5T9 PO; +ASPI-1071 PO; -ASPI-529; -ASPI-920 PO; +BUPR100T16 PO; +COL100C PO; +FAMO20TA8 PO
[2018-08-24 19:27] LABS: ALANINE AMINOTRANSFERASE 31 U/L (12-78); ALBUMIN 3.6 G/DL (3.4-5.0); ALBUMIN/GLOBULIN RATIO 0.9 (1.1-1.5); ALKALINE PHOSPHATASE 102 IU/L (46-116); ANION GAP 11 (8-16); ASPARTATE AMINO TRANSFERASE 27 U/L (10-37); BILIRUBIN,TOTAL 0.5 MG/DL (0.1-1.0); BLOOD UREA NITROGEN 20 MG/DL (7-18); BUN/CREATININE RATIO 18.3 (6.6-38.0); CALCIUM 9.6 MG/DL (8.5-10.1); CHLORIDE 106 MMOL/L (99-107); CREATININE 1.09 MG/DL (0.40-0.90); GLUCOSE 111 MG/DL (70-104); POTASSIUM 4.2 MMOL/L (3.5-5.1); SODIUM 142 MMOL/L (135-145); TOTAL CARBON DIOXIDE 24.7 MMOL/L (24-32); TOTAL PROTEIN 7.6 G/DL (6.4-8.2); eGFR 48 ML/MIN
[2018-08-24 19:30] LABS: PARTIAL THROMBOPLASTIN TIME 27 SECONDS (22-32); PROTHROMBIN TIME 10.4 SECONDS (9.0-12.0)
[2018-08-24 19:39] LABS: BASOPHILS % (AUTO) 0.2 % (0-1); EOSINOPHILS # (AUTO) 0.1 X10'3 (0-0.9); EOSINOPHILS % (AUTO) 1.1 % (0-6); HEMATOCRIT 47.8 % (35.0-45.0); HEMOGLOBIN 15.6 g/dl (12.0-16.0); LYMPHOCYTES # (AUTO) 0.8 X10'3 (1.1-4.8); LYMPHOCYTES % (AUTO) 9.3 % (21-51); MEAN CORPUSCULAR HEMOGLOBIN 28.8 PG (27.0-31.0); MEAN CORPUSCULAR HGB CONC 32.7 % (33.0-36.5); MEAN CORPUSCULAR VOLUME 88.1 FL (78-98); MEAN PLATELET VOLUME 8.9 FL (7.4-10.4); MONOCYTES # (AUTO) 0.5 X10'3 (0-0.9); MONOCYTES % (AUTO) 5.8 % (2-12); NEUTROPHILS # (AUTO) 7.4 X10'3 (1.8-7.7); NEUTROPHILS % (AUTO) 83.6 % (42-75); PLATELET COUNT 278 X10'3 (140-440); RED BLOOD COUNT 5.42 X10'6 (4.20-5.60); RED CELL DISTRIBUTION WIDTH 13.5 % (11.5-14.5); WHITE BLOOD COUNT 8.8 X10'3 (4.5-11.0)
[2018-08-24 22:15] VITALS: BP 112/70
== END 2018-08-25 00:30 | disposition home or self-care (01) ==
LOC: ER 18:22
DX: R53.1 Weakness (principal); K44.9 Diaphragmatic hernia without obstruction or gangrene; K57.30 Diverticulosis of large intestine without perforation or abscess without bleeding; I25.10 Atherosclerotic heart disease of native coronary artery without angina pectoris; I25.2 Old myocardial infarction; Z90.49 Acquired absence of other specified parts of digestive tract; Z88.0 Allergy status to penicillin; Z88.5 Allergy status to narcotic agent; Z88.8 Allergy status to other drugs, medicaments and biological substances; Z79.82 Long term (current) use of aspirin; Z79.899 Other long term (current) drug therapy
CPT/HCPCS: 36415; 71045; 74176; 80053; 84484; 85025; 85610; 85730; 99284

== ENCOUNTER 2018-10-06 15:01 | Emergency (ER) | payer MEDICARE, OTHER ==
[~2018-10-06] VITALS: Ht 160 cm; Wt 62.9 kg
[2018-10-06 15:23] LABS: BASOPHILS % (AUTO) 0.6 % (0-1); EOSINOPHILS # (AUTO) 0.3 X10'3 (0-0.9); EOSINOPHILS % (AUTO) 3.4 % (0-6); HEMOGLOBIN 14.6 g/dl (12.0-16.0); LYMPHOCYTES # (AUTO) 2.2 X10'3 (1.1-4.8); LYMPHOCYTES % (AUTO) 27.7 % (21-51); MEAN CORPUSCULAR HEMOGLOBIN 29.2 PG (27.0-31.0); MEAN CORPUSCULAR HGB CONC 33.3 % (33.0-36.5); MEAN CORPUSCULAR VOLUME 87.7 FL (78-98); MEAN PLATELET VOLUME 7.5 FL (7.4-10.4); MONOCYTES # (AUTO) 0.9 X10'3 (0-0.9); MONOCYTES % (AUTO) 11.5 % (2-12); NEUTROPHILS # (AUTO) 4.4 X10'3 (1.8-7.7); NEUTROPHILS % (AUTO) 56.8 % (42-75); PLATELET COUNT 380 X10'3 (140-440); RED BLOOD COUNT 5.02 X10'6 (4.20-5.60); RED CELL DISTRIBUTION WIDTH 12.8 % (11.5-14.5); WHITE BLOOD COUNT 7.8 X10'3 (4.5-11.0)
[2018-10-06 15:40] LABS: ALANINE AMINOTRANSFERASE 21 U/L (12-78); ALBUMIN 3.2 G/DL (3.4-5.0); ALBUMIN/GLOBULIN RATIO 0.7 (1.1-1.5); ALKALINE PHOSPHATASE 82 IU/L (46-116); ANION GAP 14 (8-16); ASPARTATE AMINO TRANSFERASE 18 U/L (10-37); BILIRUBIN,TOTAL 0.2 MG/DL (0.1-1.0); BLOOD UREA NITROGEN 14 MG/DL (7-18); BUN/CREATININE RATIO 13.7 (6.6-38.0); CALCIUM 9.3 MG/DL (8.5-10.1); CHLORIDE 106 MMOL/L (99-107); CREATININE 1.02 MG/DL (0.40-0.90); GLUCOSE 104 MG/DL (70-104); SODIUM 144 MMOL/L (135-145); TOTAL CARBON DIOXIDE 23.6 MMOL/L (24-32); TOTAL PROTEIN 7.9 G/DL (6.4-8.2); eGFR 52 ML/MIN
[2018-10-06 15:47] LABS: INR 1.1 INR; PARTIAL THROMBOPLASTIN TIME 28 SECONDS (22-32); PROTHROMBIN TIME 10.7 SECONDS (9.0-12.0)
[2018-10-06 16:56] VITALS: BP 140/75
== END 2018-10-06 17:01 | disposition home or self-care (01) ==
LOC: ER 15:02
DX: R07.89 Other chest pain (principal); I25.10 Atherosclerotic heart disease of native coronary artery without angina pectoris; I25.2 Old myocardial infarction; Z86.711 Personal history of pulmonary embolism; Z90.49 Acquired absence of other specified parts of digestive tract; Z88.0 Allergy status to penicillin; Z88.4 Allergy status to anesthetic agent; Z79.82 Long term (current) use of aspirin; Z79.899 Other long term (current) drug therapy
CPT/HCPCS: 36415; 71045; 80053; 84484; 85025; 85610; 85730; 93005; 99284

== ENCOUNTER 2018-11-14 12:14 | Emergency (ER) | payer MEDICARE, OTHER ==
[~2018-11-14] VITALS: Ht 160 cm; Wt 63.6 kg
[2018-11-14 12:55] VITALS: BP 137/99
[2018-11-14] MEDS ORDERED: NITR50CA4 PO (22:21)
== END 2018-11-14 14:09 | disposition left against medical advice (07) ==
LOC: ER 12:14
DX: R45.1 Restlessness and agitation (principal); Z53.21 Procedure and treatment not carried out due to patient leaving prior to being seen by health care provider

== ENCOUNTER 2018-11-14 14:50 | Emergency (ER) | payer MEDICARE, OTHER ==
[~2018-11-14] VITALS: Ht 160 cm; Wt 63.6 kg
--- NOTE | 2018-11-14 20:05 | NUR ---
Pt states she has been very weak today "I couldn't even open up my med bottles" Spouse states sometimes she is "zombie like" She is AOx4.
--- NOTE | 2018-11-14 20:11 | NUR ---
Pt asked her to leave, she gets very angry easily at him. His name is John and his number is [phone]
--- NOTE | 2018-11-14 20:48 | NUR ---
Registration informed me that she doesn't want her to receive any medical information on her.
--- NOTE | 2018-11-14 21:26 | NUR ---
Ambulated pt to the BR. She is a little wobbly. UA to lab. Pt snuggled back into bed. On monitors. She said "I was upstairs once in mental health, my is bipolar."
[2018-11-14 21:30] LABS: ALANINE AMINOTRANSFERASE 18 U/L (12-78); ALBUMIN 3.5 G/DL (3.4-5.0); ALBUMIN/GLOBULIN RATIO 0.9 (1.1-1.5); ALKALINE PHOSPHATASE 74 IU/L (46-116); ANION GAP 10 (8-16); ASPARTATE AMINO TRANSFERASE 19 U/L (10-37); BILIRUBIN,TOTAL 0.4 MG/DL (0.1-1.0); BLOOD UREA NITROGEN 17 MG/DL (7-18); BUN/CREATININE RATIO 18.7 (6.6-38.0); CALCIUM 9.4 MG/DL (8.5-10.1); CHLORIDE 108 MMOL/L (99-107); CREATININE 0.91 MG/DL (0.40-0.90); GLUCOSE 84 MG/DL (70-104); LIPASE 253 U/L (73-393); SODIUM 145 MMOL/L (135-145); TOTAL CARBON DIOXIDE 26.8 MMOL/L (24-32); TOTAL PROTEIN 7.3 G/DL (6.4-8.2); eGFR 59 ML/MIN
[2018-11-14 21:45] LABS: BASOPHILS # (AUTO) 0.1 X10'3 (0-0.2); BASOPHILS % (AUTO) 0.8 % (0-1); EOSINOPHILS # (AUTO) 0.3 X10'3 (0-0.9); EOSINOPHILS % (AUTO) 4.5 % (0-6); HEMATOCRIT 46.5 % (35.0-45.0); HEMOGLOBIN 14.3 g/dl (12.0-16.0); LYMPHOCYTES # (AUTO) 2.5 X10'3 (1.1-4.8); LYMPHOCYTES % (AUTO) 38.2 % (21-51); MEAN CORPUSCULAR HEMOGLOBIN 27.7 PG (27.0-31.0); MEAN CORPUSCULAR HGB CONC 30.7 g/dL (33.0-36.5); MEAN CORPUSCULAR VOLUME 90.3 FL (78-98); MEAN PLATELET VOLUME 8.9 FL (7.4-10.4); MONOCYTES # (AUTO) 0.7 X10'3 (0-0.9); MONOCYTES % (AUTO) 10.1 % (2-12); NEUTROPHILS # (AUTO) 2.9 X10'3 (1.8-7.7); NEUTROPHILS % (AUTO) 46.4 % (42-75); PLATELET COUNT 261 X10'3 (140-440); RED BLOOD COUNT 5.15 X10'6 (4.20-5.60); RED CELL DISTRIBUTION WIDTH 12.7 % (11.5-14.5); WHITE BLOOD COUNT 6.5 X10'3 (4.5-11.0)
[2018-11-14 22:15] LABS: CLARITY,URINE SLIGHTLY CLOUDY (Clear); COLOR,URINE YELLOW (Yellow); GLUCOSE, URINE NEGATIVE (Neg); KETONES,URINE NEGATIVE (Neg); LEUKOCYTE ESTERASE ,URINE MODERATE (Neg); NITRITES, URINE NEGATIVE (Neg); OCCULT BLOOD,URINE NEGATIVE (Neg); PH,URINE 5.5 (4.8-8.0); PROTEIN,URINE NEGATIVE (Neg); UROBILINOGEN,URINE 0.2 E.U/dL (0.2-1.0)
[2018-11-14 22:16] LABS: UA COLLECTION TYPE CLN CATCH MIDSTREAM
[2018-11-14] MEDS ORDERED: NITR50CA4 PO (22:21)
[2018-11-14 22:24] LABS: RBC,URINE NONE SEEN /HPF (0-2)
[2018-11-14 22:25] LABS: WBC,URINE 20-30 /HPF (0-4)
[2018-11-14 22:26] LABS: BACTERIA,URINE 3+ /HPF (Neg); MUCUS STRANDS NONE SEEN /LPF (Neg); SQUAMOUS EPITHELIAL CELL,UR MANY /LPF (FEW)
--- NOTE | 2018-11-14 22:32 | NUR ---
Pt asked I call her as she is d/c
[2018-11-14 22:39] VITALS: BP 119/73
== END 2018-11-14 22:41 | disposition home or self-care (01) ==
LOC: ER 14:51
DX: N39.0 Urinary tract infection, site not specified (principal); I25.10 Atherosclerotic heart disease of native coronary artery without angina pectoris; I25.2 Old myocardial infarction; Z86.711 Personal history of pulmonary embolism; F41.9 Anxiety disorder, unspecified; F32.9 Major depressive disorder, single episode, unspecified; Z90.49 Acquired absence of other specified parts of digestive tract; Z79.82 Long term (current) use of aspirin; Z79.899 Other long term (current) drug therapy; Z88.0 Allergy status to penicillin; Z88.5 Allergy status to narcotic agent; Z88.8 Allergy status to other drugs, medicaments and biological substances
CPT/HCPCS: 36415; 80053; 81001; 83690; 85025; 99283

== ENCOUNTER 2019-04-10 10:04 | Emergency (ER) | payer MEDICARE, OTHER ==
[~2019-04-10] VITALS: Ht 160 cm; Wt 59.0 kg
[~2019-04-10 10:04] MED LIST changes: +NITR50CA4 PO
[2019-04-10] MEDS ORDERED: adenosine 3mg/ml 2ml vial IV ONE (10:20)
[2019-04-10] MEDS ORDERED: diltiazem 5mg/ml 5ml inj. IV ONE (10:20)
[2019-04-10] MEDS ORDERED: magnesium 2GM in 50ml NS 50 ML IV ONE (10:25)
--- NOTE | 2019-04-10 10:25 | NUR ---
1025 started 18 [address] to [address] ac, 1 liter NS tko, pt connected to zol pad, HR [address] Leslie gave verbal order for adenosine 6 mg rapid IV x1, Dr Leslie at bedside 1028 HR 84 1033 repeat EKG done, pt is resting quietly on gurney, resp even and unlabored, SR on the monitor no ectopy, HR 83
[2019-04-10 10:45] LABS: BASOPHILS # (AUTO) 0.1 X10'3 (0-0.2); BASOPHILS % (AUTO) 1.2 % (0-1); EOSINOPHILS # (AUTO) 0.3 X10'3 (0-0.9); EOSINOPHILS % (AUTO) 3.7 % (0-6); HEMATOCRIT 42.6 % (35.0-45.0); HEMOGLOBIN 14.3 g/dl (12.0-16.0); LYMPHOCYTES # (AUTO) 3.1 X10'3 (1.1-4.8); LYMPHOCYTES % (AUTO) 44.4 % (21-51); MEAN CORPUSCULAR HEMOGLOBIN 29.2 PG (27.0-31.0); MEAN CORPUSCULAR HGB CONC 33.6 g/dL (33.0-36.5); MEAN PLATELET VOLUME 8.3 FL (7.4-10.4); MONOCYTES # (AUTO) 0.8 X10'3 (0-0.9); NEUTROPHILS # (AUTO) 2.7 X10'3 (1.8-7.7); NEUTROPHILS % (AUTO) 39.7 % (42-75); PLATELET COUNT 289 X10'3 (140-440); RED BLOOD COUNT 4.89 X10'6 (4.20-5.60); RED CELL DISTRIBUTION WIDTH 13.4 % (11.5-14.5); WHITE BLOOD COUNT 6.9 X10'3 (4.5-11.0)
--- NOTE | 2019-04-10 10:47 | NUR ---
pt is resting quietly, HR 93, no ectopy, family at bedside
[2019-04-10 10:54] LABS: PARTIAL THROMBOPLASTIN TIME 28 SECONDS (22-32)
[2019-04-10 10:57] LABS: ALANINE AMINOTRANSFERASE 19 U/L (12-78); ALBUMIN 3.2 G/DL (3.4-5.0); ALBUMIN/GLOBULIN RATIO 0.8 (1.1-1.5); ALKALINE PHOSPHATASE 81 IU/L (46-116); ANION GAP 9 (8-16); ASPARTATE AMINO TRANSFERASE 13 U/L (10-37); BILIRUBIN,TOTAL 0.3 MG/DL (0.1-1.0); BLOOD UREA NITROGEN 14 MG/DL (7-18); BUN/CREATININE RATIO 14.3 (6.6-38.0); CALCIUM 8.8 MG/DL (8.5-10.1); CHLORIDE 107 MMOL/L (99-107); CREATININE 0.98 MG/DL (0.40-0.90); GLUCOSE 136 MG/DL (70-104); POTASSIUM 3.8 MMOL/L (3.5-5.1); SODIUM 141 MMOL/L (135-145); TOTAL CARBON DIOXIDE 24.7 MMOL/L (24-32); TOTAL PROTEIN 7.1 G/DL (6.4-8.2); eGFR 54 ML/MIN
--- NOTE | 2019-04-10 11:31 | NUR ---
pt continues to rest quietly on CARLOS modi,
[2019-04-10 12:11] VITALS: BP 112/80
== END 2019-04-10 12:14 | disposition home or self-care (01) ==
LOC: ER 10:05
DX: I47.1 Supraventricular tachycardia (principal); I25.10 Atherosclerotic heart disease of native coronary artery without angina pectoris; I25.2 Old myocardial infarction; F41.9 Anxiety disorder, unspecified; F32.9 Major depressive disorder, single episode, unspecified; Z90.49 Acquired absence of other specified parts of digestive tract; Z86.711 Personal history of pulmonary embolism; Z88.0 Allergy status to penicillin; Z88.4 Allergy status to anesthetic agent; Z88.5 Allergy status to narcotic agent; Z88.8 Allergy status to other drugs, medicaments and biological substances; Z79.82 Long term (current) use of aspirin; Z79.899 Other long term (current) drug therapy
CPT/HCPCS: 36415; 71045; 80053; 84484; 85025; 85610; 85730; 93005; 96365; 96375; 99284; J0153; J3475

== ENCOUNTER 2019-06-23 11:33 | Outpatient (CLI) | payer MEDICARE, OTHER ==
[~2019-06-23 11:33] MED LIST changes: -MELA3TAB PO; +MELA3TAB64 PO
[2019-06-23] MEDS ORDERED: RIVA15TA PO (15:37)
[2019-06-23] MEDS ORDERED: ALPR-385 PO (16:26)
[2019-06-23] MEDS ORDERED: ALPR0.5T8 PO (16:26)
[2019-06-23] MEDS ORDERED: BUPR-94 PO (16:26)
== END 2019-06-23 23:59 | disposition home or self-care (01) ==
LOC: VAS 11:33
PROVIDERS: ATTEND Family Medicine
DX: I82.412 Acute embolism and thrombosis of left femoral vein (principal)
CPT/HCPCS: 93971; 93978

== ENCOUNTER 2019-06-23 12:55 | Emergency (ER) | payer MEDICARE, OTHER ==
[~2019-06-23] VITALS: Ht 160 cm; Wt 61.0 kg
[2019-06-23] MEDS ORDERED: enoxaparin 100mg/ml syringe SUBCUT ONE (13:10)
[2019-06-23] MEDS ORDERED: iohexol 350MG/ML 100ml bottle IV ONE (13:14)
[2019-06-23] MEDS ORDERED: enoxaparin 60mg/0.6ml syringe SUBCUT ONE (13:20)
[2019-06-23 13:38] LABS: BASOPHILS # (AUTO) 0.1 X10'3 (0-0.2); BASOPHILS % (AUTO) 1.2 % (0-1); EOSINOPHILS # (AUTO) 0.3 X10'3 (0-0.9); EOSINOPHILS % (AUTO) 4.7 % (0-6); HEMATOCRIT 43.7 % (35.0-45.0); HEMOGLOBIN 14.6 g/dl (12.0-16.0); LYMPHOCYTES # (AUTO) 2.1 X10'3 (1.1-4.8); LYMPHOCYTES % (AUTO) 39.4 % (21-51); MEAN CORPUSCULAR HEMOGLOBIN 29.3 PG (27.0-31.0); MEAN CORPUSCULAR HGB CONC 33.4 g/dL (33.0-36.5); MEAN CORPUSCULAR VOLUME 87.6 FL (78-98); MEAN PLATELET VOLUME 8.5 FL (7.4-10.4); MONOCYTES # (AUTO) 0.6 X10'3 (0-0.9); MONOCYTES % (AUTO) 10.6 % (2-12); NEUTROPHILS # (AUTO) 2.4 X10'3 (1.8-7.7); NEUTROPHILS % (AUTO) 44.1 % (42-75); PLATELET COUNT 232 X10'3 (140-440); RED BLOOD COUNT 4.99 X10'6 (4.20-5.60); RED CELL DISTRIBUTION WIDTH 13.9 % (11.5-14.5); WHITE BLOOD COUNT 5.4 X10'3 (4.5-11.0)
[2019-06-23 13:49] LABS: PARTIAL THROMBOPLASTIN TIME 27 SECONDS (22-32)
[2019-06-23 13:50] LABS: ALANINE AMINOTRANSFERASE 18 U/L (12-78); ALBUMIN 3.4 G/DL (3.4-5.0); ALBUMIN/GLOBULIN RATIO 0.9 (1.1-1.5); ALKALINE PHOSPHATASE 79 IU/L (46-116); ANION GAP 9 (8-16); ASPARTATE AMINO TRANSFERASE 13 U/L (10-37); BILIRUBIN,TOTAL 0.4 MG/DL (0.1-1.0); BLOOD UREA NITROGEN 15 MG/DL (7-18); CHLORIDE 110 MMOL/L (99-107); CREATININE 0.75 MG/DL (0.40-0.90); GLUCOSE 94 MG/DL (70-104); POTASSIUM 3.9 MMOL/L (3.5-5.1); SODIUM 145 MMOL/L (135-145); TOTAL CARBON DIOXIDE 26.1 MMOL/L (24-32); TOTAL PROTEIN 7.2 G/DL (6.4-8.2); eGFR 74 ML/MIN
[2019-06-23] MEDS ORDERED: RIVA15TA PO (15:37)
[2019-06-23 15:57] VITALS: BP 101/42
[2019-06-23] MEDS ORDERED: BUPR-94 PO (16:26)
[2019-06-23] MEDS ORDERED: ALPR0.5T8 PO (16:26)
[2019-06-23] MEDS ORDERED: ALPR-385 PO (16:26)
== END 2019-06-23 16:12 | disposition home or self-care (01) ==
LOC: ER 12:56
DX: I82.402 Acute embolism and thrombosis of unspecified deep veins of left lower extremity (principal); I25.10 Atherosclerotic heart disease of native coronary artery without angina pectoris; I25.2 Old myocardial infarction; F41.9 Anxiety disorder, unspecified; F32.9 Major depressive disorder, single episode, unspecified; Z86.711 Personal history of pulmonary embolism; Z90.49 Acquired absence of other specified parts of digestive tract; Z88.0 Allergy status to penicillin; Z88.5 Allergy status to narcotic agent; Z88.8 Allergy status to other drugs, medicaments and biological substances; Z79.82 Long term (current) use of aspirin; Z79.899 Other long term (current) drug therapy
CPT/HCPCS: 36415; 71275; 80053; 85025; 85610; 85730; 96372; 99284; Q9967; 93971; 93978; J1650

== ENCOUNTER 2019-08-05 12:14 | Emergency (ER) | payer MEDICARE, OTHER ==
[~2019-08-05] VITALS: Ht 160 cm; Wt 60.9 kg
[~2019-08-05 12:14] MED LIST changes: +ALPR0.5T8 PO; -ALPR0.5T9 PO; +BUPR-94 PO; -BUPR100T16 PO; -MELA3TAB64 PO; -NITR50CA4 PO; +RIVA15TA PO
[2019-08-05 12:59] LABS: BASOPHILS % (AUTO) 0.3 % (0-1); EOSINOPHILS # (AUTO) 0.3 X10'3 (0-0.9); EOSINOPHILS % (AUTO) 2.6 % (0-6); HEMATOCRIT 41.5 % (35.0-45.0); HEMOGLOBIN 13.8 g/dl (12.0-16.0); LYMPHOCYTES # (AUTO) 2.4 X10'3 (1.1-4.8); LYMPHOCYTES % (AUTO) 18.9 % (21-51); MEAN CORPUSCULAR HEMOGLOBIN 29.2 PG (27.0-31.0); MEAN CORPUSCULAR HGB CONC 33.2 g/dL (33.0-36.5); MEAN CORPUSCULAR VOLUME 87.7 FL (78-98); MEAN PLATELET VOLUME 8.5 FL (7.4-10.4); MONOCYTES # (AUTO) 1.3 X10'3 (0-0.9); NEUTROPHILS # (AUTO) 8.8 X10'3 (1.8-7.7); NEUTROPHILS % (AUTO) 68.2 % (42-75); PLATELET COUNT 265 X10'3 (140-440); RED BLOOD COUNT 4.73 X10'6 (4.20-5.60); WHITE BLOOD COUNT 12.9 X10'3 (4.5-11.0)
[2019-08-05 13:16] LABS: ALANINE AMINOTRANSFERASE 16 U/L (12-78); ALBUMIN 3.1 G/DL (3.4-5.0); ALBUMIN/GLOBULIN RATIO 0.8 (1.1-1.5); ALKALINE PHOSPHATASE 78 IU/L (46-116); ANION GAP 8 (8-16); ASPARTATE AMINO TRANSFERASE 15 U/L (10-37); BILIRUBIN,TOTAL 0.4 MG/DL (0.1-1.0); BLOOD UREA NITROGEN 13 MG/DL (7-18); BUN/CREATININE RATIO 15.7 (6.6-38.0); CALCIUM 9.3 MG/DL (8.5-10.1); CHLORIDE 108 MMOL/L (99-107); CREATININE 0.83 MG/DL (0.40-0.90); GLUCOSE 103 MG/DL (70-104); LIPASE 320 U/L (73-393); POTASSIUM 4.1 MMOL/L (3.5-5.1); SODIUM 143 MMOL/L (135-145); TOTAL CARBON DIOXIDE 26.8 MMOL/L (24-32); eGFR 66 ML/MIN
[2019-08-05] MEDS ORDERED: normal saline 1000ML IV soln IVB ONE (14:50)
[2019-08-05] MEDS ORDERED: morphine 4 MG/ML inj SYRINge IV PRN (14:50)
[2019-08-05] MEDS ORDERED: ondansetron/PF 4mg/2ml inj IV ONE (14:50)
[2019-08-05 15:07] LABS: CLARITY,URINE CLEAR (Clear); COLOR,URINE YELLOW (Yellow); GLUCOSE, URINE NEGATIVE (Neg); KETONES,URINE NEGATIVE (Neg); LEUKOCYTE ESTERASE ,URINE TRACE (Neg); NITRITES, URINE NEGATIVE (Neg); OCCULT BLOOD,URINE NEGATIVE (Neg); PROTEIN,URINE NEGATIVE (Neg); UROBILINOGEN,URINE 0.2 E.U/dL (0.2-1.0)
[2019-08-05 15:10] LABS: UA COLLECTION TYPE CLN CATCH MIDSTREAM
[2019-08-05 15:13] LABS: BACTERIA,URINE 1+ /HPF (Neg); MUCUS STRANDS FEW /LPF (Neg); RBC,URINE NONE SEEN /HPF (0-2); SQUAMOUS EPITHELIAL CELL,UR MODERATE /LPF (FEW)
[2019-08-05 15:14] LABS: URIC ACID CRYSTALS 2+ /HPF (NEGATIVE)
[2019-08-05 17:14] VITALS: BP 148/86
== END 2019-08-05 17:17 | disposition home or self-care (01) ==
LOC: ER 12:14
DX: R10.11 Right upper quadrant pain (principal); I25.10 Atherosclerotic heart disease of native coronary artery without angina pectoris; I25.2 Old myocardial infarction; F41.9 Anxiety disorder, unspecified; F32.9 Major depressive disorder, single episode, unspecified; Z88.0 Allergy status to penicillin; Z88.4 Allergy status to anesthetic agent; Z88.8 Allergy status to other drugs, medicaments and biological substances; Z88.6 Allergy status to analgesic agent; Z79.899 Other long term (current) drug therapy; Z79.82 Long term (current) use of aspirin; Z90.49 Acquired absence of other specified parts of digestive tract; Z90.710 Acquired absence of both cervix and uterus
CPT/HCPCS: 36415; 74176; 80053; 81001; 83690; 85025; 87088; 96374; 96375; 99284; J2270; J2405; J7030

== ENCOUNTER 2019-11-09 14:56 | Emergency (ER) | payer MEDICARE, OTHER ==
[~2019-11-09] VITALS: Ht 165.1 cm; Wt 68.2 kg
[2019-11-09] MEDS ORDERED: LORazepam 2 mg/ml vial IV ONE (15:30)
[2019-11-09] MEDS ORDERED: cyclobenzaprine 10mg tablet PO ONE (15:30)
[2019-11-09] MEDS ORDERED: normal saline 1000ML IV soln IVB ONE (15:30)
[2019-11-09 15:58] LABS: BASOPHILS # (AUTO) 0.1 X10'3 (0-0.2); BASOPHILS % (AUTO) 0.9 % (0-1); EOSINOPHILS # (AUTO) 0.4 X10'3 (0-0.9); EOSINOPHILS % (AUTO) 5.2 % (0-6); HEMOGLOBIN 14.7 g/dl (12.0-16.0); LYMPHOCYTES % (AUTO) 43.7 % (21-51); MEAN CORPUSCULAR HEMOGLOBIN 28.8 PG (27.0-31.0); MEAN CORPUSCULAR HGB CONC 33.4 g/dL (33.0-36.5); MEAN CORPUSCULAR VOLUME 86.2 FL (78-98); MEAN PLATELET VOLUME 8.1 FL (7.4-10.4); MONOCYTES # (AUTO) 0.7 X10'3 (0-0.9); MONOCYTES % (AUTO) 9.6 % (2-12); NEUTROPHILS # (AUTO) 2.8 X10'3 (1.8-7.7); NEUTROPHILS % (AUTO) 40.6 % (42-75); PLATELET COUNT 232 X10'3 (140-440); RED BLOOD COUNT 5.11 X10'6 (4.20-5.60); RED CELL DISTRIBUTION WIDTH 14.3 % (11.5-14.5); WHITE BLOOD COUNT 6.9 X10'3 (4.5-11.0)
[2019-11-09 16:11] LABS: PARTIAL THROMBOPLASTIN TIME 27 SECONDS (22-32)
[2019-11-09 16:20] LABS: ALANINE AMINOTRANSFERASE 17 U/L (12-78); ALBUMIN 3.6 G/DL (3.4-5.0); ALKALINE PHOSPHATASE 82 IU/L (46-116); ANION GAP 9 (8-16); ASPARTATE AMINO TRANSFERASE 21 U/L (10-37); BILIRUBIN,TOTAL 0.4 MG/DL (0.1-1.0); BLOOD UREA NITROGEN 10 MG/DL (7-18); BUN/CREATININE RATIO 10.3 (6.6-38.0); CALCIUM 9.1 MG/DL (8.5-10.1); CHLORIDE 110 MMOL/L (99-107); CREATININE 0.97 MG/DL (0.40-0.90); GLUCOSE 88 MG/DL (70-104); POTASSIUM 3.7 MMOL/L (3.5-5.1); SODIUM 144 MMOL/L (135-145); TOTAL CARBON DIOXIDE 25.5 MMOL/L (24-32); TOTAL PROTEIN 7.1 G/DL (6.4-8.2); eGFR 55 ML/MIN
--- NOTE | 2019-11-09 17:01 | NUR ---
US TECH AT BEDSIDE.
[2019-11-09 17:05] LABS: CLARITY,URINE CLEAR (Clear); COLOR,URINE YELLOW (Yellow); GLUCOSE, URINE NEGATIVE (Neg); KETONES,URINE NEGATIVE (Neg); LEUKOCYTE ESTERASE ,URINE NEGATIVE (Neg); NITRITES, URINE NEGATIVE (Neg); OCCULT BLOOD,URINE NEGATIVE (Neg); PROTEIN,URINE NEGATIVE (Neg); UROBILINOGEN,URINE 0.2 E.U/dL (0.2-1.0)
[2019-11-09 17:08] LABS: UA COLLECTION TYPE STRAIGHT CATH
[2019-11-09] MEDS ORDERED: CYCL-1 PO (17:08)
[2019-11-09 17:42] VITALS: BP 129/96
== END 2019-11-09 17:47 | disposition home or self-care (01) ==
LOC: ER 14:57
DX: R51 Headache (principal); I25.10 Atherosclerotic heart disease of native coronary artery without angina pectoris; I25.2 Old myocardial infarction; F41.9 Anxiety disorder, unspecified; F32.9 Major depressive disorder, single episode, unspecified; R79.1 Abnormal coagulation profile; Z86.711 Personal history of pulmonary embolism; Z90.49 Acquired absence of other specified parts of digestive tract; Z90.710 Acquired absence of both cervix and uterus; Z88.0 Allergy status to penicillin; Z88.5 Allergy status to narcotic agent; Z88.8 Allergy status to other drugs, medicaments and biological substances; Z79.82 Long term (current) use of aspirin; Z79.899 Other long term (current) drug therapy
CPT/HCPCS: 36415; 70450; 80053; 81003; 84443; 85025; 85651; 85730; 96374; 99284; J2060; J7030

== ENCOUNTER 2021-01-20 16:23 | Emergency (ER) | payer MEDICARE, OTHER ==
[~2021-01-20] VITALS: Ht 160 cm; Wt 60.5 kg
[~2021-01-20 16:23] MED LIST changes: +CYCL-1 PO
[2021-01-20] MEDS ORDERED: ondansetron/PF 4mg/2ml inj IV ONE (16:35)
[2021-01-20] MEDS ORDERED: normal saline 1000ML IV soln IVB ONE (16:35)
--- NOTE | 2021-01-20 17:15 | NUR ---
TALKED TO DR TRAN REGARDING LILIANE'S NOW LEFT SIDED ABDOMINAL PAIN, MD IS AWAITING RESULTS OF URINE LILIANE STATES THAT "EVER SINCE I HAD THAT RECTAL OPERATION (COLONOSCOPY), I HAVE HAD TO MANUALLY DISIMPACT EVERY DAY FOR THE LAST 3 YEARS"
--- NOTE | 2021-01-20 17:18 | NUR ---
PATIENT REFUSED ZOFRAN
[2021-01-20 17:22] LABS: BASOPHILS % (AUTO) 0.9 % (0-1); EOSINOPHILS # (AUTO) 0.5 X10'3 (0-0.9); EOSINOPHILS % (AUTO) 9.2 % (0-6); HEMATOCRIT 43.5 % (35.0-45.0); HEMOGLOBIN 14.7 g/dl (12.0-16.0); LYMPHOCYTES # (AUTO) 2.3 X10'3 (1.1-4.8); LYMPHOCYTES % (AUTO) 41.2 % (21-51); MEAN CORPUSCULAR HEMOGLOBIN 30.6 PG (27.0-31.0); MEAN CORPUSCULAR HGB CONC 33.8 g/dL (33.0-36.5); MEAN CORPUSCULAR VOLUME 90.6 FL (78-98); MEAN PLATELET VOLUME 8.4 FL (7.4-10.4); MONOCYTES # (AUTO) 0.7 X10'3 (0-0.9); MONOCYTES % (AUTO) 12.4 % (2-12); NEUTROPHILS % (AUTO) 36.3 % (42-75); PLATELET COUNT 172 X10'3 (140-440); WHITE BLOOD COUNT 5.5 X10'3 (4.5-11.0)
--- NOTE | 2021-01-20 17:23 | NUR ---
RELIEVING RN FOR BREAK, ATTEMPTED TO DO IN AND OUT CATH, PT IS REFUSING "GOD DAMN THAT IS SO PAINFUL", EXPLAINED BENEFITS OF OBTAINING URINE VIA CATH, PT CONTINUES TO REFUSE, DR TRAN AWARE
[2021-01-20 17:37] LABS: ALANINE AMINOTRANSFERASE 16 U/L (12-78); ALBUMIN 3.4 G/DL (3.4-5.0); ALBUMIN/GLOBULIN RATIO 0.9 (1.1-1.5); ALKALINE PHOSPHATASE 75 IU/L (46-116); ANION GAP 12 (8-16); ASPARTATE AMINO TRANSFERASE 20 U/L (10-37); BILIRUBIN,TOTAL 0.7 MG/DL (0.1-1.0); BLOOD UREA NITROGEN 11 MG/DL (7-18); BUN/CREATININE RATIO 14.7 (6.6-38.0); CALCIUM 9.6 MG/DL (8.5-10.1); CHLORIDE 107 MMOL/L (99-107); CREATININE 0.75 MG/DL (0.40-0.90); GLUCOSE 91 MG/DL (70-104); POTASSIUM 3.7 MMOL/L (3.5-5.1); SODIUM 144 MMOL/L (135-145); TOTAL CARBON DIOXIDE 25.1 MMOL/L (24-32); TOTAL PROTEIN 7.1 G/DL (6.4-8.2); eGFR 74 ML/MIN
[2021-01-20 17:40] LABS: LIPASE 201 U/L (73-393); TROPONIN I < 0.04 NG/ML (0.0-0.05)
[2021-01-20 18:12] VITALS: BP 155/67
--- NOTE | 2021-01-20 18:14 | NUR ---
VOIDED 500 ML CLEAR YELLOW URINE
[2021-01-20 18:16] LABS: CLARITY,URINE CLEAR (Clear); COLOR,URINE YELLOW (Yellow); GLUCOSE, URINE NEGATIVE (Neg); KETONES,URINE NEGATIVE (Neg); LEUKOCYTE ESTERASE ,URINE TRACE (Neg); NITRITES, URINE NEGATIVE (Neg); OCCULT BLOOD,URINE TRACE-INTACT (Neg); PROTEIN,URINE NEGATIVE (Neg); UROBILINOGEN,URINE 0.2 E.U/dL (0.2-1.0)
[2021-01-20 18:27] LABS: UA COLLECTION TYPE CLN CATCH MIDSTREAM
[2021-01-20 18:32] LABS: BACTERIA,URINE NONE SEEN /HPF (Neg); RBC,URINE 0-2 /HPF (0-2); SQUAMOUS EPITHELIAL CELL,UR FEW /LPF (FEW); WBC,URINE 0-4 /HPF (0-4)
== END 2021-01-20 19:06 | disposition home or self-care (01) ==
LOC: ER 16:23
DX: R11.0 Nausea (principal); R53.1 Weakness; I25.10 Atherosclerotic heart disease of native coronary artery without angina pectoris; I25.2 Old myocardial infarction; F41.9 Anxiety disorder, unspecified; F32.9 Major depressive disorder, single episode, unspecified; Z90.49 Acquired absence of other specified parts of digestive tract; Z90.710 Acquired absence of both cervix and uterus; Z86.711 Personal history of pulmonary embolism; Z88.0 Allergy status to penicillin; Z88.5 Allergy status to narcotic agent; Z88.8 Allergy status to other drugs, medicaments and biological substances; Z79.82 Long term (current) use of aspirin; Z79.899 Other long term (current) drug therapy
CPT/HCPCS: 36415; 71045; 76705; 80053; 81001; 83690; 84484; 85025; 87088; 93005; 96360; 99285; J7030

== ENCOUNTER 2021-07-08 17:01 | Inpatient (IN) | payer MEDICARE, OTHER ==
[~2021-07-08] VITALS: Ht 167.6 cm; Wt 70.0 kg
[~2021-07-08 17:01] MED LIST changes: +adenosine 3mg/ml 2ml vial IV ONE
[2021-07-08] MEDS ORDERED: adenosine 3mg/ml 2ml vial IV ONE ×2 (17:35)
[2021-07-08 17:41] LABS: BASOPHILS # (AUTO) 0.1 X10'3 (0-0.2); BASOPHILS % (AUTO) 1.2 % (0-1); EOSINOPHILS # (AUTO) 0.4 X10'3 (0-0.9); EOSINOPHILS % (AUTO) 4.9 % (0-6); HEMOGLOBIN 16.1 g/dl (12.0-16.0); LYMPHOCYTES # (AUTO) 3.4 X10'3 (1.1-4.8); LYMPHOCYTES % (AUTO) 42.4 % (21-51); MEAN CORPUSCULAR HGB CONC 34.3 g/dL (33.0-36.5); MEAN CORPUSCULAR VOLUME 90.5 FL (78-98); MEAN PLATELET VOLUME 8.7 FL (7.4-10.4); MONOCYTES % (AUTO) 12.2 % (2-12); NEUTROPHILS # (AUTO) 3.2 X10'3 (1.8-7.7); NEUTROPHILS % (AUTO) 39.3 % (42-75); PLATELET COUNT 251 X10'3 (140-440); RED BLOOD COUNT 5.19 X10'6 (4.20-5.60); RED CELL DISTRIBUTION WIDTH 12.6 % (11.5-14.5); WHITE BLOOD COUNT 8.1 X10'3 (4.5-11.0)
[2021-07-08 17:51] LABS: PARTIAL THROMBOPLASTIN TIME 29 SECONDS (22-32)
[2021-07-08 17:52] LABS: ALANINE AMINOTRANSFERASE 23 U/L (12-78); ALBUMIN 3.7 G/DL (3.4-5.0); ALKALINE PHOSPHATASE 96 IU/L (46-116); ANION GAP 13 (8-16); ASPARTATE AMINO TRANSFERASE 21 U/L (10-37); BILIRUBIN,TOTAL 0.3 MG/DL (0.1-1.0); BLOOD UREA NITROGEN 16 MG/DL (7-18); CALCIUM 8.9 MG/DL (8.5-10.1); CHLORIDE 108 MMOL/L (99-107); GLUCOSE 135 MG/DL (70-104); SODIUM 144 MMOL/L (135-145); TOTAL PROTEIN 7.5 G/DL (6.4-8.2); eGFR 53 ML/MIN
[2021-07-08] MEDS: aspirin 81mg tab.chew PO ONE ×2 (17:52→18:01)
[2021-07-08 18:00] LABS: MAGNESIUM 2.1 MG/DL (1.5-2.4)
[2021-07-08] MEDS ORDERED: MELA10CA2 PO (19:02)
[2021-07-08] MEDS ORDERED: potassium Cl 40MEQ/1/2NS 520ml 520 ML IV PRN ×2 (19:40)
[2021-07-08] MEDS ORDERED: PERFLUTREN PROTEIN-A MICROSPHR (Optison) 0.22 MG/ML 3ML VIAL IV PRN (19:40)
[2021-07-08] MEDS ORDERED: ondansetron/PF 4mg/2ml inj IV PRN (19:40)
[2021-07-08] MEDS ORDERED: acetaminophen 325mg tablet PO PRN (19:40)
[2021-07-08] MEDS ORDERED: potassium Cl 20 mEq SR tablet PO PRN ×2 (19:40)
[2021-07-08] MEDS ORDERED: magnesium hydroxide 30ml (MOM) UD suspension PO PRN (19:40)
[2021-07-08] MEDS ORDERED: mag hydrox/Alum hydrox/simeth 30ml oral suspension PO PRN (19:40)
[2021-07-08] MEDS: docusate sod 100mg capsule PO SCH (20:00)
[2021-07-08] MEDS: K and/or MAG REPLACEMENT MC SCH (20:00)
[2021-07-08 20:52] LABS: HEMOGLOBIN A1C 5.5 % (4.5-6.2)
[2021-07-08] MEDS ORDERED: Melatonin 3mg tablet PO SCH (21:00)
[2021-07-08 21:23] VITALS: BP 132/73
[2021-07-08 22:00] VITALS: BP 117/70
--- NOTE | 2021-07-08 22:00 | NUR ---
Patient in room PCU 3024. I have received report from WILLY DYER and had the opportunity to ask questions and assume patient care.
[2021-07-08] MEDS: heparin, porcine 5000 units/ml vial SQ SCH (22:41)
[2021-07-09 02:00] VITALS: BP 111/66
--- NOTE | 2021-07-09 06:02 | NUR ---
Problems reprioritized. Patient report given, questions answered & plan of care reviewed with MERCHANDISING COORDINATOR.
[2021-07-09 06:53] LABS: BASOPHILS # (AUTO) 0.1 X10'3 (0-0.2); BASOPHILS % (AUTO) 1.2 % (0-1); EOSINOPHILS # (AUTO) 0.3 X10'3 (0-0.9); EOSINOPHILS % (AUTO) 7.8 % (0-6); HEMATOCRIT 40.1 % (35.0-45.0); HEMOGLOBIN 13.6 g/dl (12.0-16.0); LYMPHOCYTES # (AUTO) 2.3 X10'3 (1.1-4.8); LYMPHOCYTES % (AUTO) 50.8 % (21-51); MEAN CORPUSCULAR HEMOGLOBIN 30.6 PG (27.0-31.0); MEAN CORPUSCULAR VOLUME 89.9 FL (78-98); MEAN PLATELET VOLUME 8.6 FL (7.4-10.4); MONOCYTES # (AUTO) 0.5 X10'3 (0-0.9); MONOCYTES % (AUTO) 10.6 % (2-12); NEUTROPHILS # (AUTO) 1.3 X10'3 (1.8-7.7); NEUTROPHILS % (AUTO) 29.6 % (42-75); PLATELET COUNT 189 X10'3 (140-440); RED BLOOD COUNT 4.46 X10'6 (4.20-5.60); RED CELL DISTRIBUTION WIDTH 12.7 % (11.5-14.5); WHITE BLOOD COUNT 4.4 X10'3 (4.5-11.0)
[2021-07-09 06:54] LABS: ALANINE AMINOTRANSFERASE 20 U/L (12-78); ALBUMIN 2.8 G/DL (3.4-5.0); ALBUMIN/GLOBULIN RATIO 0.8 (1.1-1.5); ALKALINE PHOSPHATASE 74 IU/L (46-116); ANION GAP 10 (8-16); ASPARTATE AMINO TRANSFERASE 16 U/L (10-37); BILIRUBIN,TOTAL 0.5 MG/DL (0.1-1.0); BLOOD UREA NITROGEN 11 MG/DL (7-18); BUN/CREATININE RATIO 13.4 (6.6-38.0); CALCIUM 8.4 MG/DL (8.5-10.1); CHLORIDE 114 MMOL/L (99-107); CREATININE 0.82 MG/DL (0.40-0.90); GLUCOSE 90 MG/DL (70-104); POTASSIUM 3.9 MMOL/L (3.5-5.1); SODIUM 147 MMOL/L (135-145); TOTAL CARBON DIOXIDE 23.2 MMOL/L (24-32); TOTAL PROTEIN 6.1 G/DL (6.4-8.2); eGFR 66 ML/MIN
[2021-07-09 06:57] LABS: CHOL/HDL RATIO 3.5 (0.00-4.99); CHOLESTEROL 188 MG/DL (0-200); HDL CHOLESTEROL 53 MG/DL (35-60); LDL CHOLESTEROL 121 MG/DL (50-100); TRIGLYCERIDES 99 MG/DL (20-135)
[2021-07-09 07:48] VITALS: BP 132/71
[2021-07-09] MEDS: heparin, porcine 5000 units/ml vial SQ SCH (08:00)
[2021-07-09] MEDS: K and/or MAG REPLACEMENT MC SCH (08:00)
[2021-07-09] MEDS: docusate sod 100mg capsule PO SCH (08:00)
[2021-07-09] MEDS ORDERED: LORA-269 PO (10:22)
[2021-07-09] MEDS ORDERED: LORazepam 0.5 MG tablet PO PRN (10:25)
[2021-07-09 11:00] VITALS: BP 142/67
[2021-07-09 12:18] LABS: PLATELET ESTIMATE NORMAL; TOTAL CELLS COUNTED 100
[2021-07-09] MEDS ORDERED: PANT-47 PO (12:54)
--- NOTE | 2021-07-09 13:18 | NUR ---
Paged Dr Guallpa "PAGER ID: [phone] MESSAGE: [phone] Gemma [phone] Yovana Jiang patient is asking if she can have a Rx for a sleep medication on discharge."
[2021-07-09] MEDS ORDERED: ZOLP5TAB2 PO (14:00)
--- NOTE | 2021-07-09 14:45 | NUR ---
Patient discharged home in stable condition. IV removed, cannula intact. Tele monitor discontinued and returned to director television. All discharge instructions reviewed with no further questions. Patient taken to front of hospital via wheelchair with all belongings on person. Picked up by cab. Patient was very distracted during discharge instructions. Personal ativan was returned to patient. Medications e-scripted to [facility] on [address] per patient's request.
== END 2021-07-09 14:30 | disposition home or self-care (01) | DRG 392 ==
LOC: ER 17:01 → ED HOLD 19:43 → PCU 3S 21:11
PROVIDERS: ADMIT Internal Medicine; ATTEND Family Medicine
DX: K21.9 Gastro-esophageal reflux disease without esophagitis (principal); I47.1 Supraventricular tachycardia; F41.9 Anxiety disorder, unspecified; I25.10 Atherosclerotic heart disease of native coronary artery without angina pectoris; F32.A Depression, unspecified; N18.9 Chronic kidney disease, unspecified; I25.2 Old myocardial infarction; Z85.42 Personal history of malignant neoplasm of other parts of uterus; Z86.711 Personal history of pulmonary embolism; Z87.891 Personal history of nicotine dependence; Z90.710 Acquired absence of both cervix and uterus; Z86.718 Personal history of other venous thrombosis and embolism; Z88.0 Allergy status to penicillin; Z88.5 Allergy status to narcotic agent; Z88.8 Allergy status to other drugs, medicaments and biological substances; Z90.49 Acquired absence of other specified parts of digestive tract; Z79.899 Other long term (current) drug therapy
CPT/HCPCS: 36415; 71045; 80053; 80061; 83036; 83735; 83880; 84484; 85007; 85025; 85610; 85730; 87081; 93005; 93306; 96374; 99291; G0378; J0153; J1644

== ENCOUNTER 2021-08-24 15:21 | Emergency (ER) | payer MEDICARE, OTHER ==
[~2021-08-24] VITALS: Ht 317.5 cm; Wt 54.5 kg
[~2021-08-24 15:21] MED LIST changes: -ALPR0.5T8 PO; -ASPI-1071 PO; -BUPR-94 PO; -COL100C PO; -CYCL-1 PO; -FAMO20TA8 PO; +LORA-269 PO; +MELA10CA2 PO; +PANT-47 PO; -RIVA15TA PO; +ZOLP5TAB2 PO; -adenosine 3mg/ml 2ml vial IV ONE
[2021-08-24] MEDS ORDERED: LORazepam 1 MG tablet PO ONE (16:05)
--- NOTE | 2021-08-24 16:10 | NUR ---
Pt. ambulated over from Main ER accompainied by RN. She is currently having her blood drawn at bedside, pt. presents as very anxious.
[2021-08-24 16:25] LABS: EOSINOPHILS # (AUTO) 0.2 X10'3 (0-0.9); LYMPHOCYTES # (AUTO) 2.4 X10'3 (1.1-4.8); MEAN PLATELET VOLUME 8.5 FL (7.4-10.4); MONOCYTES # (AUTO) 0.7 X10'3 (0-0.9)
[2021-08-24 16:27] LABS: BASOPHILS # (AUTO) 0.1 X10'3 (0-0.2); BASOPHILS % (AUTO) 0.8 % (0-1); EOSINOPHILS % (AUTO) 3.4 % (0-6); HEMOGLOBIN 15.2 g/dl (12.0-16.0); LYMPHOCYTES % (AUTO) 38.7 % (21-51); MEAN CORPUSCULAR HEMOGLOBIN 31.1 PG (27.0-31.0); MEAN CORPUSCULAR HGB CONC 34.5 g/dL (33.0-36.5); MONOCYTES % (AUTO) 11.3 % (2-12); NEUTROPHILS # (AUTO) 2.8 X10'3 (1.8-7.7); NEUTROPHILS % (AUTO) 45.8 % (42-75); PLATELET COUNT 206 X10'3 (140-440); RED BLOOD COUNT 4.89 X10'6 (4.20-5.60); RED CELL DISTRIBUTION WIDTH 12.8 % (11.5-14.5); WHITE BLOOD COUNT 6.1 X10'3 (4.5-11.0)
[2021-08-24 16:37] LABS: ALANINE AMINOTRANSFERASE 22 U/L (12-78); ALBUMIN 3.6 G/DL (3.4-5.0); ALKALINE PHOSPHATASE 85 IU/L (46-116); ANION GAP 8 (8-16); ASPARTATE AMINO TRANSFERASE 24 U/L (10-37); BILIRUBIN,TOTAL 0.4 MG/DL (0.1-1.0); BLOOD UREA NITROGEN 12 MG/DL (7-18); BUN/CREATININE RATIO 12.9 (6.6-38.0); CALCIUM 9.1 MG/DL (8.5-10.1); CHLORIDE 108 MMOL/L (99-107); CREATININE 0.93 MG/DL (0.40-0.90); GLUCOSE 97 MG/DL (70-104); SODIUM 144 MMOL/L (135-145); TOTAL CARBON DIOXIDE 27.6 MMOL/L (24-32); TOTAL PROTEIN 7.3 G/DL (6.4-8.2); eGFR 57 ML/MIN
[2021-08-24 16:46] LABS: ETHANOL < 0.010 GM/DL (0.0-0.010); POTASSIUM 3.9 MMOL/L (3.5-5.1)
[2021-08-24 16:50] LABS: URINE AMPHETAMINE SCREEN NEGATIVE (Neg); URINE BARBITUATE SCREEN NEGATIVE (Neg); URINE BENZODIAZEPINES SCREEN NEGATIVE (Neg); URINE CANNABINOID SCREEN NEGATIVE (Neg); URINE COCAINE SCREEN NEGATIVE (Neg); URINE METHADONE SCREEN NEGATIVE (Neg); URINE OPIATE SCREEN NEGATIVE (Neg); URINE PHENCYCLIDINE SCREEN NEGATIVE (Neg)
[2021-08-24 16:56] LABS: CLARITY,URINE SLIGHTLY CLOUDY (Clear); COLOR,URINE YELLOW (Yellow); GLUCOSE, URINE NEGATIVE (Neg); KETONES,URINE NEGATIVE (Neg); LEUKOCYTE ESTERASE ,URINE SMALL (Neg); NITRITES, URINE NEGATIVE (Neg); OCCULT BLOOD,URINE NEGATIVE (Neg); PH,URINE 5.5 (4.8-8.0); PROTEIN,URINE NEGATIVE (Neg); UROBILINOGEN,URINE 0.2 E.U/dL (0.2-1.0)
[2021-08-24 16:59] LABS: UA COLLECTION TYPE CLN CATCH MIDSTREAM
[2021-08-24 17:07] LABS: BACTERIA,URINE FEW /HPF (Neg); MUCUS STRANDS FEW /LPF (Neg); RBC,URINE 0-2 /HPF (0-2); SQUAMOUS EPITHELIAL CELL,UR MANY /LPF (FEW); TRANSITIONAL EPI CELLS,URINE MODERATE /HPF
--- NOTE | 2021-08-24 17:31 | NUR ---
Pt. brought in a significant amout of money which was sent to the safe, she refused to have her purse, wallet, and credit cards sent to the safe as well. These will be kept in her purse and locked in room for safe keeping along with pt's clothes. Pt. chose to wear her 5 rings. Pt. brought in an empty Lorazepam 1mg Medication bottle (prescription was take 1/2 tablet BID as needed for anxiety). Will discard empty bottle with pt's permission.
--- NOTE | 2021-08-24 18:00 | NUR ---
Pt. was only prescribed [address] Magana with no refills on 08/11/21. Pt's pharmacy is [facility] on [address] [phone]). Will endorse to Noc shift to verify. Pt. also reports she takes Melatonin for sleep. No other medications reported.
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
[2021-08-24] MEDS ORDERED: MELA10TA2 PO ×2 (18:12→18:20)
[2021-08-24] MEDS ORDERED: Melatonin 3mg tablet PO PRN (19:05)
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
--- NOTE | 2021-08-24 19:35 | NUR ---
pt has dinner tray at bedside
--- NOTE | 2021-08-24 20:40 | NUR ---
pt is sleeping, clinician for [facility] will do a full cognitive evaluation in the morning, they are aware pt has a dog and that no one is available to care for animal, they suggested calling animal control tomorrow if pt is not dc'd home after evaluation
--- NOTE | 2021-08-24 22:46 | NUR ---
Client asleep at 22:30. Resp even and unlabored.
--- NOTE | 2021-08-24 23:52 | NUR ---
Client is resting on left side. Resp even and unlabored.
--- NOTE | 2021-08-25 01:38 | NUR ---
pt is sleeping, no s/s of distress noted.
[2021-08-25 05:51] VITALS: BP 129/63
--- NOTE | 2021-08-25 07:02 | NUR ---
Faxed packet to [facility] for eval.
--- NOTE | 2021-08-25 07:07 | NUR ---
Patient resting in her bed on her back side. This wrtier and patient just went over the process of being in the ER and being evalusted by [facility], patient is upset because [employer] has called her and would like her son William who has karlo missing for two week, they are asking for is dental records. Patient states she lives in a home that she is buying, she is now alone since her son is missing. Patient states she has 8 children and most recently lost her to COVID in May. Patient states she was so anxious she was looking for medication to calm her down, "I drove my self here, my car is in the ER lot, I want to go home".
[2021-08-25] MEDS ORDERED: LORazepam 1 MG tablet PO PRN (07:40)
--- NOTE | 2021-08-25 07:50 | NUR ---
Pateint became very tearfully PRN orders from ENVIRONMENTAL PROJECT MANAGER, Ativan 1 mg po prn anxiety given.
--- NOTE | 2021-08-25 08:54 | NUR ---
Patient appears to be confortable after prn, patient looked through her belongiong to see if she has her phone with her to get numbers to call her son Thomas, phone is not in patient belonging bag. This wrtier attempted to look up patient son phone number in the "white pages", unable to locate a number that was not disconnected, this is primarily due to the fact that the white pages only list land lines and most like patient son has a cell phone. Will attmept to reach a daughter that is in the [facility] area, she is listed on [employer] paper work. Patient ate 60% of her breakfast. and is resting quietly.
--- NOTE | 2021-08-25 09:45 | NUR ---
KAY, [place], evaluating patient. No distress observed at this time. Continue to monitor.
--- NOTE | 2021-08-25 10:55 | NUR ---
Patient sitting on bedside interviewing with [facility]
[2021-08-25] MEDS ORDERED: LORA-269 PO (11:47)
== END 2021-08-25 12:10 | disposition home or self-care (01) ==
LOC: ER 15:22
DX: F43.20 Adjustment disorder, unspecified (principal); F41.9 Anxiety disorder, unspecified; F20.9 Schizophrenia, unspecified; I25.10 Atherosclerotic heart disease of native coronary artery without angina pectoris; I25.2 Old myocardial infarction; F32.9 Major depressive disorder, single episode, unspecified; Z87.01 Personal history of pneumonia (recurrent); Z86.718 Personal history of other venous thrombosis and embolism; Z85.9 Personal history of malignant neoplasm, unspecified; Z90.49 Acquired absence of other specified parts of digestive tract; Z90.710 Acquired absence of both cervix and uterus; Z88.0 Allergy status to penicillin; Z88.5 Allergy status to narcotic agent; Z88.8 Allergy status to other drugs, medicaments and biological substances
CPT/HCPCS: 36415; 80053; 80305; 80320; 81001; 84443; 85025; 99284

== ENCOUNTER 2021-10-14 11:35 | Emergency (ER) | payer MEDICARE, OTHER ==
[~2021-10-14] VITALS: Ht 157.5 cm; Wt 59.1 kg
[~2021-10-14 11:35] MED LIST changes: -MELA10CA2 PO; +MELA10TA2 PO; -PANT-47 PO; -ZOLP5TAB2 PO
[2021-10-14 11:48] VITALS: BP 104/80
[2021-10-14] MEDS ORDERED: LORazepam 1 MG tablet PO ONE (11:55)
[2021-10-14 12:37] LABS: EOSINOPHILS # (AUTO) 0.2 X10'3 (0-0.9); EOSINOPHILS % (AUTO) 3.9 % (0-6); HEMATOCRIT 43.2 % (35.0-45.0); HEMOGLOBIN 14.8 g/dl (12.0-16.0); LYMPHOCYTES # (AUTO) 1.2 X10'3 (1.1-4.8); LYMPHOCYTES % (AUTO) 28.1 % (21-51); MEAN CORPUSCULAR HEMOGLOBIN 30.8 PG (27.0-31.0); MEAN CORPUSCULAR HGB CONC 34.2 g/dL (33.0-36.5); MEAN CORPUSCULAR VOLUME 89.9 FL (78-98); MEAN PLATELET VOLUME 8.6 FL (7.4-10.4); MONOCYTES # (AUTO) 0.4 X10'3 (0-0.9); MONOCYTES % (AUTO) 10.6 % (2-12); NEUTROPHILS # (AUTO) 2.4 X10'3 (1.8-7.7); NEUTROPHILS % (AUTO) 56.4 % (42-75); PLATELET COUNT 223 X10'3 (140-440); RED CELL DISTRIBUTION WIDTH 12.8 % (11.5-14.5); WHITE BLOOD COUNT 4.2 X10'3 (4.5-11.0)
[2021-10-14 12:55] LABS: ALANINE AMINOTRANSFERASE 13 U/L (12-78); ALBUMIN 3.3 G/DL (3.4-5.0); ALBUMIN/GLOBULIN RATIO 0.9 (1.1-1.5); ALKALINE PHOSPHATASE 72 IU/L (46-116); ANION GAP 12 (8-16); ASPARTATE AMINO TRANSFERASE 21 U/L (10-37); BILIRUBIN,TOTAL 0.4 MG/DL (0.1-1.0); BLOOD UREA NITROGEN 13 MG/DL (7-18); BUN/CREATININE RATIO 14.1 (6.6-38.0); CALCIUM 8.8 MG/DL (8.5-10.1); CHLORIDE 111 MMOL/L (99-107); CREATININE 0.92 MG/DL (0.40-0.90); GLUCOSE 178 MG/DL (70-104); POTASSIUM 3.8 MMOL/L (3.5-5.1); SODIUM 144 MMOL/L (135-145); TOTAL CARBON DIOXIDE 21.3 MMOL/L (24-32); eGFR 58 ML/MIN
[2021-10-14] MEDS ORDERED: LORA-269 PO (13:06)
== END 2021-10-14 13:21 | disposition home or self-care (01) ==
LOC: ER 11:36
DX: F41.9 Anxiety disorder, unspecified (principal); I25.10 Atherosclerotic heart disease of native coronary artery without angina pectoris; I25.2 Old myocardial infarction; F32.9 Major depressive disorder, single episode, unspecified; Z86.711 Personal history of pulmonary embolism; Z86.718 Personal history of other venous thrombosis and embolism; Z85.9 Personal history of malignant neoplasm, unspecified; Z90.49 Acquired absence of other specified parts of digestive tract; Z90.710 Acquired absence of both cervix and uterus; Z88.0 Allergy status to penicillin; Z88.8 Allergy status to other drugs, medicaments and biological substances; Z88.5 Allergy status to narcotic agent; Z79.899 Other long term (current) drug therapy
CPT/HCPCS: 36415; 71045; 80053; 83880; 84484; 85025; 93005; 99285

== ENCOUNTER 2021-11-06 15:08 | Emergency (ER) | payer MEDICARE, OTHER ==
[~2021-11-06] VITALS: Ht 157.5 cm; Wt 59.0 kg
[2021-11-06 15:38] VITALS: BP 114/82
[2021-11-06] MEDS ORDERED: LORA-269 PO (15:41)
== END 2021-11-06 16:09 | disposition home or self-care (01) ==
LOC: ER 15:09
DX: F41.9 Anxiety disorder, unspecified (principal); R11.0 Nausea; F13.239 Sedative, hypnotic or anxiolytic dependence with withdrawal, unspecified; I25.10 Atherosclerotic heart disease of native coronary artery without angina pectoris; I25.2 Old myocardial infarction; Z85.9 Personal history of malignant neoplasm, unspecified; Z86.711 Personal history of pulmonary embolism; Z86.718 Personal history of other venous thrombosis and embolism; Z88.0 Allergy status to penicillin; Z88.8 Allergy status to other drugs, medicaments and biological substances; Z91.018 Allergy to other foods; Z79.899 Other long term (current) drug therapy
CPT/HCPCS: 99283

== ENCOUNTER 2021-11-16 09:23 | Emergency (ER) | payer MEDICARE ==
[~2021-11-16] VITALS: Ht 160 cm; Wt 60.0 kg
[2021-11-16 10:17] LABS: BASOPHILS # (AUTO) 0.1 X10'3 (0-0.2); BASOPHILS % (AUTO) 1.3 % (0-1); EOSINOPHILS # (AUTO) 0.4 X10'3 (0-0.9); EOSINOPHILS % (AUTO) 8.5 % (0-6); HEMATOCRIT 42.3 % (35.0-45.0); HEMOGLOBIN 14.4 g/dl (12.0-16.0); LYMPHOCYTES # (AUTO) 1.9 X10'3 (1.1-4.8); LYMPHOCYTES % (AUTO) 40.5 % (21-51); MEAN CORPUSCULAR HEMOGLOBIN 30.4 PG (27.0-31.0); MEAN CORPUSCULAR VOLUME 89.4 FL (78-98); MEAN PLATELET VOLUME 8.5 FL (7.4-10.4); MONOCYTES # (AUTO) 0.5 X10'3 (0-0.9); MONOCYTES % (AUTO) 10.7 % (2-12); NEUTROPHILS # (AUTO) 1.8 X10'3 (1.8-7.7); PLATELET COUNT 190 X10'3 (140-440); RED BLOOD COUNT 4.73 X10'6 (4.20-5.60); WHITE BLOOD COUNT 4.7 X10'3 (4.5-11.0)
[2021-11-16 10:31] LABS: ALANINE AMINOTRANSFERASE 19 U/L (12-78); ALBUMIN 3.3 G/DL (3.4-5.0); ALBUMIN/GLOBULIN RATIO 1.1 (1.1-1.5); ALKALINE PHOSPHATASE 80 IU/L (46-116); ANION GAP 7 (8-16); ASPARTATE AMINO TRANSFERASE 18 U/L (10-37); BILIRUBIN,TOTAL 0.6 MG/DL (0.1-1.0); BLOOD UREA NITROGEN 10 MG/DL (7-18); BUN/CREATININE RATIO 11.8 (6.6-38.0); CALCIUM 8.9 MG/DL (8.5-10.1); CHLORIDE 111 MMOL/L (99-107); CREATININE 0.85 MG/DL (0.40-0.90); GLUCOSE 99 MG/DL (70-104); SODIUM 143 MMOL/L (135-145); TOTAL CARBON DIOXIDE 24.7 MMOL/L (24-32); TOTAL PROTEIN 6.4 G/DL (6.4-8.2); eGFR 64 ML/MIN
[2021-11-16 10:41] LABS: ETHANOL < 0.010 GM/DL (0.0-0.010)
--- NOTE | 2021-11-16 12:59 | NUR ---
PT. TRANSFERRED FROM THE MAIN ER TO ER OVERFLOW. PT. PLACED IN BED #20. PT. PERSONAL CLOTHING LOGGED IN ON BELONGING SHEET. PT. PURSE AND IT'S CONTENTS ALONG WITH HER CELL PHONE INVENTORIED BY ER ADMITTING AND LOCKUP IN SAFE. PT. DENIES ANY CURRENT SI/HI OR AH/VH AT THIS TIME. PT. PRESENTS ANXIOUS AND FOCUSED ON GETTING MEDICATION TO SLEEP. PT. COOPERATIVE WITH ASSESSMENT. DENIES ANY OTHER COMPLAINTS AT THIS TIME. STAFF WILL CONTINUE TO MONITOR FOR SAFETY.
[2021-11-16 13:11] LABS: CLARITY,URINE CLEAR (Clear); COLOR,URINE YELLOW (Yellow); GLUCOSE, URINE NEGATIVE (Neg); KETONES,URINE NEGATIVE (Neg); LEUKOCYTE ESTERASE ,URINE NEGATIVE (Neg); NITRITES, URINE NEGATIVE (Neg); OCCULT BLOOD,URINE NEGATIVE (Neg); PROTEIN,URINE NEGATIVE (Neg); UROBILINOGEN,URINE 0.2 E.U/dL (0.2-1.0)
[2021-11-16 13:14] LABS: URINE AMPHETAMINE SCREEN NEGATIVE (Neg); URINE BARBITUATE SCREEN NEGATIVE (Neg); URINE BENZODIAZEPINES SCREEN NEGATIVE (Neg); URINE CANNABINOID SCREEN NEGATIVE (Neg); URINE COCAINE SCREEN NEGATIVE (Neg); URINE METHADONE SCREEN NEGATIVE (Neg); URINE OPIATE SCREEN NEGATIVE (Neg); URINE PHENCYCLIDINE SCREEN NEGATIVE (Neg)
[2021-11-16 13:24] LABS: UA COLLECTION TYPE NON-SPECIFIED
[2021-11-16] MEDS ORDERED: Melatonin 3mg tablet PO PRN (14:10)
--- NOTE | 2021-11-16 14:26 | NUR ---
PT. VISIBLE ON THE UNIT RESTING QUIETLY WITH HER EYES CLOSED.
--- NOTE | 2021-11-16 15:06 | NUR ---
PACKET FAXED TO [facility] .
--- NOTE | 2021-11-16 17:47 | NUR ---
PT. SCHEDULED FOR DISCHARGE HOME. PT. HAS RECEIVED PERSONAL CLOTHING AND SECURITY HAS RETURNED HER AND IT'S CONTENTS TO UNIT. PER PHYSICIAN ORDER PATIENT IS NOT ALLOWED TO RESOURCE ECONOMIST HERSELF HOME;THE HOSPITAL WILL PROVIDE A [facility] FOR TRANSPORT HOME. [facility] CALLED FOR PATIENT WAS INFORMED OF A 1 HOUR 45 MINUTE WAIT. PT. HAS SIGNED ALL DISCHARGE PAPERWORK AND RECEIVED A COPY. STAFF WILL CONTINUE TO MONITOR FOR SAFETY UNTIL DISCHARGE.
[2021-11-16] MEDS ORDERED: acetaminophen 325mg tablet PO ONE (17:50)
[2021-11-16 18:58] VITALS: BP 125/89
== END 2021-11-17 01:20 ==
LOC: ER 09:24
DX: F41.0 Panic disorder [episodic paroxysmal anxiety] (principal); Z20.822 Contact with and (suspected) exposure to COVID-19; I25.10 Atherosclerotic heart disease of native coronary artery without angina pectoris; I25.2 Old myocardial infarction; F32.A Depression, unspecified; Z86.711 Personal history of pulmonary embolism; Z86.718 Personal history of other venous thrombosis and embolism; Z85.9 Personal history of malignant neoplasm, unspecified; Z90.49 Acquired absence of other specified parts of digestive tract; Z90.710 Acquired absence of both cervix and uterus; Z88.0 Allergy status to penicillin; Z88.5 Allergy status to narcotic agent; Z79.899 Other long term (current) drug therapy
CPT/HCPCS: 80053; 80305; 80320; 81003; 84443; 85025; 87635; 99285; C9803

== ENCOUNTER 2022-03-12 08:05 | Emergency (ER) | payer MEDICARE ==
[~2022-03-12] VITALS: Ht 160 cm; Wt 59.1 kg
[2022-03-12 08:36] LABS: CLARITY,URINE SLIGHTLY CLOUDY (Clear); COLOR,URINE YELLOW (Yellow); GLUCOSE, URINE NEGATIVE (Neg); KETONES,URINE NEGATIVE (Neg); LEUKOCYTE ESTERASE ,URINE SMALL (Neg); NITRITES, URINE NEGATIVE (Neg); OCCULT BLOOD,URINE NEGATIVE (Neg); PROTEIN,URINE NEGATIVE (Neg); UROBILINOGEN,URINE 0.2 E.U/dL (0.2-1.0)
[2022-03-12 08:46] LABS: UA COLLECTION TYPE CLN CATCH MIDSTREAM
[2022-03-12 08:48] LABS: RBC,URINE NONE SEEN /HPF (0-2)
[2022-03-12 08:49] LABS: BACTERIA,URINE 2+ /HPF (Neg); MUCUS STRANDS NONE SEEN /LPF (Neg); SQUAMOUS EPITHELIAL CELL,UR MANY /LPF (FEW)
[2022-03-12 08:55] LABS: BASOPHILS % (AUTO) 0.8 % (0-1); EOSINOPHILS # (AUTO) 0.2 X10'3 (0-0.9); EOSINOPHILS % (AUTO) 4.3 % (0-6); HEMATOCRIT 39.6 % (35.0-45.0); HEMOGLOBIN 13.4 g/dl (12.0-16.0); LYMPHOCYTES # (AUTO) 1.6 X10'3 (1.1-4.8); LYMPHOCYTES % (AUTO) 29.6 % (21-51); MEAN CORPUSCULAR HEMOGLOBIN 29.8 PG (27.0-31.0); MEAN CORPUSCULAR HGB CONC 33.9 g/dL (33.0-36.5); MEAN CORPUSCULAR VOLUME 88.1 FL (78-98); MEAN PLATELET VOLUME 9.1 FL (7.4-10.4); MONOCYTES # (AUTO) 0.6 X10'3 (0-0.9); MONOCYTES % (AUTO) 11.7 % (2-12); NEUTROPHILS % (AUTO) 53.6 % (42-75); PLATELET COUNT 171 X10'3 (140-440); RED BLOOD COUNT 4.49 X10'6 (4.20-5.60); WHITE BLOOD COUNT 5.5 X10'3 (4.5-11.0)
[2022-03-12 09:02] LABS: ALANINE AMINOTRANSFERASE 13 U/L (12-78); ALBUMIN 2.9 G/DL (3.4-5.0); ALBUMIN/GLOBULIN RATIO 0.9 (1.1-1.5); ALKALINE PHOSPHATASE 74 IU/L (46-116); ANION GAP 8 (8-16); ASPARTATE AMINO TRANSFERASE 18 U/L (10-37); BILIRUBIN,TOTAL 0.4 MG/DL (0.1-1.0); BLOOD UREA NITROGEN 7 MG/DL (7-18); BUN/CREATININE RATIO 7.9 (6.6-38.0); CALCIUM 8.5 MG/DL (8.5-10.1); CHLORIDE 114 MMOL/L (99-107); CREATININE 0.89 MG/DL (0.40-0.90); GLUCOSE 144 MG/DL (70-104); POTASSIUM 3.7 MMOL/L (3.5-5.1); SODIUM 145 MMOL/L (135-145); TOTAL CARBON DIOXIDE 22.7 MMOL/L (24-32); TOTAL PROTEIN 6.1 G/DL (6.4-8.2); eGFR 60 ML/MIN
[2022-03-12] MEDS ORDERED: CEPH-585 PO (09:48)
[2022-03-12 09:53] VITALS: BP 120/71
== END 2022-03-12 10:06 | disposition home or self-care (01) ==
LOC: ER 08:06
DX: N39.0 Urinary tract infection, site not specified (principal); I11.9 Hypertensive heart disease without heart failure; F41.9 Anxiety disorder, unspecified; F32.9 Major depressive disorder, single episode, unspecified; Z88.0 Allergy status to penicillin; Z88.5 Allergy status to narcotic agent
CPT/HCPCS: 36415; 70450; 71045; 80053; 81001; 85025; 99285

== ENCOUNTER 2022-05-28 08:24 | Emergency (ER) | payer MEDICARE ==
[~2022-05-28] VITALS: Ht 160 cm; Wt 59.1 kg
[~2022-05-28 08:24] MED LIST changes: -LORA-269 PO
[2022-05-28] MEDS ORDERED: CEPH250T PO (11:44)
[2022-05-28] MEDS ORDERED: MUPI22OI30 TOP (11:44)
[2022-05-28 11:52] VITALS: BP 124/67
[2022-05-29] MEDS ORDERED: DOXY100C77 PO (19:17)
== END 2022-05-28 11:54 | disposition home or self-care (01) ==
LOC: ER 08:24
DX: L03.113 Cellulitis of right upper limb (principal); Z88.0 Allergy status to penicillin; Z88.5 Allergy status to narcotic agent; Z88.4 Allergy status to anesthetic agent; Z91.018 Allergy to other foods; Z88.8 Allergy status to other drugs, medicaments and biological substances; Z90.49 Acquired absence of other specified parts of digestive tract; Z90.710 Acquired absence of both cervix and uterus; Z87.891 Personal history of nicotine dependence; Z59.00 Homelessness unspecified
CPT/HCPCS: 99285

== ENCOUNTER 2022-05-30 12:35 | Emergency (ER) | payer MEDICARE ==
[~2022-05-30] VITALS: Ht 160 cm; Wt 59.1 kg
[~2022-05-30 12:35] MED LIST changes: +CEPH250T PO; +DOXY100C77 PO; +MUPI22OI30 TOP
[2022-05-30 12:37] VITALS: BP 108/68
== END 2022-05-30 15:48 | disposition home or self-care (01) ==
LOC: ER 12:35
DX: Z00.00 Encounter for general adult medical examination without abnormal findings (principal); Z88.0 Allergy status to penicillin; Z88.4 Allergy status to anesthetic agent; Z88.5 Allergy status to narcotic agent; Z91.018 Allergy to other foods; Z88.8 Allergy status to other drugs, medicaments and biological substances; Z90.49 Acquired absence of other specified parts of digestive tract; Z90.710 Acquired absence of both cervix and uterus; Z59.00 Homelessness unspecified
CPT/HCPCS: 99284